=== PATIENT | female | born 1970 | race Caucasian/White ===

== ENCOUNTER → 2016-08-15 | Outpatient (CLI) | payer MEDICARE | LOC: RAD 16:03 | PROVIDERS: ATTEND Physician Assistant | DX: M51.37 Other intervertebral disc degeneration, lumbosacral region (principal); M47.897 Other spondylosis, lumbosacral region | CPT/HCPCS: 72148 ==

== ENCOUNTER 2017-09-28 21:14 | Emergency (ER) | payer MEDICARE ==
[2017-09-28 21:41] VITALS: BP 138/85
--- NOTE | 2017-09-28 23:17 | ER Document Report ---
ED ENT - General Chief Complaint: Sore Throat Stated Complaint: SORE THROAT Time Seen by Provider: 09/28/17 23:02 Mode of Arrival: Ambulatory Information source: Patient Notes: 47-year-old male presents to ED for a sore throat starting yesterday. She has had a cough and cold. She states she is also thought she had thrush yesterday and took her Diflucan for. She denies any fevers. She states she does have a chronic history of sarcoidosis diabetes thyroid depression and PTSD anxiety bipolar. She is alert and oriented speaking in full even sentences. TRAVEL OUTSIDE OF THE [place] IN LAST 30 DAYS: No - HPI Patient complains to provider of: Throat problem Onset: Yesterday Onset/Duration: Persistent Quality of pain: Sharp Severity: Moderate Pain Level: 3 Context: Recent Illness Location of pain: Sinus, Throat Associated symptoms: Ear pain, Runny nose, Sinus pain, Sore throat. denies: Fever Similar symptoms previously: Yes Recently seen / treated by doctor: No - Related Data Allergies/Adverse Reactions: ziprasidone HCl [From Geodon] Allergy (Unknown, Verified 05/25/14 13:27) FELT LIKE I CAN'T BREATH bromocriptine mesylate [From Parlodel] Allergy (Verified 05/25/14 13:27) lamotrigine [From Lamictal] Allergy (Verified 05/25/14 13:27) perphenazine [From Trilafon] Allergy (Verified 05/25/14 13:27) haloperidol [From Haldol] Adverse Reaction (Verified 05/25/14 13:27) Restlessness Past Medical History - General Information source: Patient - Social History Smoking Status: Never Smoker Cigarette use (# per day): No Chew tobacco use (# tins/day): No Smoking Education Provided: No Frequency of alcohol use: None Drug Abuse: None Lives with: Family Family History: Reviewed & Not Pertinent - Past Medical History Cardiac Medical History: Reports: None Pulmonary Medical History: Reports: None, Other - Pulmonary sarcoidosis neurosarcoidosis Neurological Medical History: Reports: None Endocrine Medical History: Reports: Hx Diabetes Mellitus Type 2, Hx Hypothyroidism Renal/ Medical History: Reports: None Malignancy Medical History: Reports: None GI Medical History: Reports: Hx Gastroesophageal Reflux Disease Musculoskeltal Medical History: Reports Hx Musculoskeletal Deformity Skin Medical History: Reports None Psychiatric Medical History: Reports: Hx Anxiety, Hx Attention Deficit Hyperactivity Disorder, Hx Bipolar Disorder - TYPE 2, Hx Depression, Hx Post Traumatic Stress Disorder Traumatic Medical History: Reports: None Infectious Medical History: Reports: None Past Surgical History: Reports: Hx Gynecologic Surgery - tubal ligation NovaSure , Hx Neurologic Surgery, Hx Oral Surgery, Hx Orthopedic Surgery - carpel tunnel , Hx Tubal Ligation - Immunizations Hx Diphtheria, Pertussis, Tetanus Vaccination: No Hx Pneumococcal Vaccination: 04/28/12 Review of Systems - Review of Systems Constitutional: Recent illness. denies: Fever EENT: Ear pain, Nose discharge, Sinus discharge, Throat pain Cardiovascular: No symptoms reported Respiratory: No symptoms reported Gastrointestinal: No symptoms reported Genitourinary: No symptoms reported Female Genitourinary: No symptoms reported Musculoskeletal: No symptoms reported Skin: No symptoms reported Hematologic/Lymphatic: No symptoms reported Neurological/Psychological: No symptoms reported Physical Exam - Vital signs Vitals: Temp Pulse Resp BP Pulse Ox 98.5 F 79 18 138/85 H 97 09/28/17 21:38 09/28/17 21:38 09/28/17 21:38 09/28/17 21:38 09/28/17 21:38 Interpretation: Normal - General General appearance: Appears well, Alert - HEENT Head: Normocephalic, Atraumatic Eyes: Normal Pupils: PERRL Ears: Normal External canal: Normal Tympanic membrane: Normal Sinus: Normal Nasal: Swelling, Clear rhinorrhea Mouth/Lips: Normal Pharynx: Erythema, Post nasal drainage. No: Exudate, Tonsillar hypertrophy Neck: Normal - Respiratory Respiratory status: No respiratory distress Chest status: Nontender Breath sounds: Normal Chest palpation: Normal - Cardiovascular Rhythm: Regular Heart sounds: Normal auscultation Murmur: No - Abdominal Inspection: Normal Distension: No distension Bowel sounds: Normal Tenderness: Nontender Organomegaly: No organomegaly - Back Back: Normal, Nontender - Extremities General upper extremity: Normal inspection, Nontender, Normal color, Normal ROM , Normal temperature General lower extremity: Normal inspection, Nontender, Normal color, Normal ROM , Normal temperature, Normal weight bearing. No: Amirah's sign - Neurological Neuro grossly intact: Yes Cognition: Normal Orientation: AAOx4 [place] Coma Scale Eye Opening: Spontaneous [place] Coma Scale Verbal: Oriented Eliu Coma Scale Motor: Obeys Commands Eliu Coma Scale Total: 15 Speech: Normal Motor strength normal: LUE, RUE, LLE, RLE Sensory: Normal - Psychological Associated symptoms: Normal affect, Normal mood - Skin Skin Temperature: Warm Skin Moisture: Dry Skin Color: Normal Skin irregularity: Rash - Facial rash Course - Re-evaluation Re-evalutation: 09/29/17 00:51 After performing a Medical Screening Examination, I estimate there is LOW risk for ACUTE CORONARY SYNDROME, RESPIRATORY FAILURE, SEPSIS OR MENINGITIS, thus I consider the discharge disposition reasonable. I have reevaluated this patient multiple times and no significant life threatening changes are noted. The patient and I have discussed the diagnosis and risks, and we agree with discharging home with close follow-up. We also discussed returning to the Emergency Department immediately if new or worsening symptoms occur. We have discussed the symptoms which are most concerning (e.g., changing or worsening pain, trouble swallowing or breathing, neck stiffness, fever) that necessitate immediate return. - Vital Signs Vital signs: Temp Pulse Resp BP Pulse Ox 98.5 F 79 18 138/85 H 97 09/28/17 21:38 09/28/17 21:38 09/28/17 21:38 09/28/17 21:38 09/28/17 21:38 Discharge - Discharge Clinical Impression: Viral sore throat, Viral upper respiratory infection, Otalgia of right ear Condition: Stable Disposition: HOME, SELF-CARE Additional Instructions: SORE THROAT: Sore throats may be caused by viruses, bacteria, or fungi. Most are due to a virus, and must get better on their own. Bacterial sore throats, particularly those due to "strep," need treatment with antibiotics. If an antibiotic is prescribed, be sure to take the medication for a full 10 days. Failure to take the antibiotic can result in complications such as rheumatic fever. Sometimes, an injection of antibiotics is given instead of pills or liquid. This single "shot" is equal in effectiveness to the oral medication. To relieve symptoms, take acetaminophen for pain. Sip clear liquids frequently, or eat popsicles or ice chips. Anesthetic sprays or lozenges may help. Make sure the air in the room is not too dry. Avoid using decongestants or antihistamines. Call the doctor if there is no improvement in two days, or if you have difficulty breathing, increasing throat pain, high fever, rash, or frequent vomiting. UPPER RESPIRATORY ILLNESS: You have a viral infection of the respiratory passages -- a "cold." This common infection causes nasal congestion, drainage, and often sore throat and cough. It is highly contagious. The disease usually lasts about 10 to 14 days. There is no "cure" for the viral infection -- it must run its course. If there is a complication, such as bacterial infection in the nose, sinuses, middle ear, or bronchial tubes, antibiotics may be required. The antibiotics won't affect the virus. Drink plenty of fluids. A humidifier may help. An expectorant medication or decongestant may make you more comfortable. Use acetaminophen or ibuprofen for fever or aches. See the doctor if fever persists over two days, if there is any significant worsening of your symptoms, or if you simply fail to improve as expected. Your strep test was negative at this time. It is sent for culture and you will be called if anything shows on the culture. Please follow-up with your primary doctor for your upper respiratory infection. FOLLOW-UP CARE: If you have been referred to a physician for follow-up care, call the physician s office for an appointment as you were instructed or within the next two days. If you experience worsening or a significant change in your symptoms, notify the physician immediately or return to the Emergency Department at any time for re-evaluation. Forms: Elevated Blood Pressure Referrals: KARIS VILLALTA MD [Primary Care Provider] - Follow up tomorrow
== END 2017-09-28 23:58 | disposition home or self-care (01) ==
LOC: ER 21:14
DX: J06.9 Acute upper respiratory infection, unspecified (principal); J02.9 Acute pharyngitis, unspecified; H92.01 Otalgia, right ear; E11.9 Type 2 diabetes mellitus without complications; E03.9 Hypothyroidism, unspecified; Z98.51 Tubal ligation status
CPT/HCPCS: 87070; 87880; 99283

== ENCOUNTER → 2018-03-11 | Outpatient (CLI) | payer MEDICARE ==
--- NOTE | 2018-03-11 12:00 | RADIOLOGY REPORT (SQ) ---
EXAM DESCRIPTION: HAND RIGHT 3 VIEWS COMPLETED DATE/TIME: 03/11/2018 11:00 am REASON FOR STUDY: PAIN IN RIGHT HAND (M79.641), PAIN IN UNSPEC FINGERS (M79.646) M79.641 PAIN IN RI GHT HAND M79.646 PAIN IN UNSPECIFIED FINGER(S) COMPARISON: 07/11/2010 EXAM PARAMETERS: NUMBER OF VIEWS: Three views. TECHNIQUE: AP, lateral and oblique radiographic images acquired of the right hand. LIMITATIONS: None. FINDINGS: MINERALIZATION: Normal. BONES: No acute fracture or dislocation. No worrisome bone lesions. JOINTS: No effusions. SOFT TISSUES: No soft tissue swelling. No foreign body. OTHER: No other significant finding. IMPRESSION: NEGATIVE STUDY OF THE RIGHT HAND. NO RADIOGRAPHIC EVIDENCE OF ACUTE INJURY. TECHNICAL DOCUMENTATION: JOB ID: [id number]- All Rights Reserved Reading location - IP/workstation name: [email or web address]
== END ==
LOC: RAD 10:18
PROVIDERS: ATTEND Physician Assistant Medical
DX: M79.641 Pain in right hand (principal)

== ENCOUNTER → 2018-04-26 | Day surgery (SDC) | payer MEDICARE ==
[~2018-04-26] MED LIST: BUPIVACAINE HCL 0.5 % INJ/PF 30 ML SDV ONE; LIDOCAINE 1% INJ-PF (10 MG/ML) 30 ML SDV ONE; METHYLPREDNISOLONE ACETATE INJ 40 MG/1 ML ML ONE
--- NOTE | 2018-05-03 13:44 | Operative Report ---
PREOPERATIVE DIAGNOSIS: Lumbar Spondylosis POSTOPERATIVE DIAGNOSIS: Lumbar Spondylosis PROCEDURE: Radiofrequency Ablation of medial branches - RT L4 and dorsal primary ramus of L5. LT L4 and Dorsal primary ramus of L5. DATE OF PROCEDURE: 04/26/2019 ANESTHESIA: Local COMPLICATIONS: None CONSENT: A full description of the procedure was provided including benefits as well as possible complications. All questions were answered and informed consent was given and signed. ASA guidelines for fasting were verified prior to sedation. PROCEDURE IN DETAIL The patient was brought into the fluoroscopy suite and positioned into the prone position on the fluoroscopy table and allowed to adjust to a position of comfort. A grounding pad was placed on the left thigh. The lumbar region was widely prepped with a chloraprep solution, allowed to air dry and draped in standard sterile surgical fashion. Local anesthesia was provided by 1 mL of 1 % lidocaine delivered with a 25 g needle. A 17g 100mm radiofrequency introducer needle was placed to the planned anatomic targets guided with intermittent fluoroscopy with a perpendicular approach to terminally place at the junction of the superior articular process and the transverse process of the right L5 and the base of the sacral ala on the right for the L5 medial branch nerve. The stylets were removed and radiofrequency probes with a 4mm active tip were then inserted. Needle tip position of the probes was verified in the AP, oblique, and lateral views. At each site, the medial branch nerve was stimulated at 2 Hz to a maximum 1-2 volts determined to finalize safe needle and electrode placement. The patient was awake and responsive during this portion of the procedure. Each target was anesthetized with 1-2 mL of 0.25 % bupivacaine for anesthesia for lesioning and then each target was lesioned at 80 degrees Celsius for 2 minutes and 30 seconds. Tissue impedences were noted to be between 250 and 500 Ohms. Electrodes were then removed and the needles were infiltrated with 1mL of a mixture containing 40mg depomedrol in 0.25% bupivacaine. Then, needles were then removed. Attention was then turned to the opposite side where the procedure was performed in identical fashion. [place] were removed, and bandages placed over the needle placement sites, the patient then returned to the supine position on a stretcher and transported to the recovery room without hemodynamic, neurologic, or allergic reactions. Fluoroscopic images were printed for hard copy recording and digitally archived. POST PROCEDURE EVALUATION: The patient was comfortable in the recovery room. The patient is aware that pain may worsen before remitting and 4 - 6 weeks may be required prior to the onset of pain relief. IMPRESSION: 1. Technically successful Bilateral L4 L5 medial branch radiofrequency neurotomy without complication. 2. RTC in 2 weeks. 3. Estimated Blood Loss: None
== END ==
LOC: RAD 10:25
PROVIDERS: ATTEND Pain Medicine Interventional Pain Medicine
DX: M47.817 Spondylosis without myelopathy or radiculopathy, lumbosacral region (principal)
CPT/HCPCS: 64635 ×2; J3490 ×2; J1020

== ENCOUNTER → 2018-04-26 | Outpatient (CLI) | payer MEDICARE | LOC: LAB 11:31 | PROVIDERS: ATTEND Obstetrics & Gynecology | DX: Z11.1 Encounter for screening for respiratory tuberculosis (principal) | CPT/HCPCS: 36415 ==

== ENCOUNTER 2018-05-14 18:16 | Emergency (ER) | payer MEDICARE ==
[2018-05-14 19:25] LABS: ABSOLUTE EOSINOPHILS # (AUTO) 0.1 10^3/uL (0.0-0.6); ABSOLUTE LYMPHOCYTES (AUTO) 2.1 10^3/uL (0.5-4.7); ABSOLUTE MONOCYTES (AUTO) 0.5 10^3/uL (0.1-1.4); ABSOLUTE NEUT (AUTO) 8.2 10^3/uL (1.7-8.2); BASOPHILS % (AUTO) 0.3 % (0-2); EOSINOPHILS % (AUTO) 0.6 % (0-6); HEMATOCRIT 48.9 % (36.0-47.0); HEMOGLOBIN 16.6 g/dL (12.0-15.5); LYMPHOCYTES % (AUTO) 19.1 % (13-45); MEAN CORPUSCULAR HEMOGLOBIN 28.3 pg (27.0-33.4); MEAN CORPUSCULAR VOLUME 83 fl (80-97); MONOCYTES % (AUTO) 4.3 % (3-13); PLATELET COUNT 219 10^3/uL (150-450); RED BLOOD COUNT 5.87 10^6/uL (3.72-5.28); RED CELL DISTRIBUTION WIDTH 13.1 % (11.5-14.0); SEGMENTED NEUTROPHILS % (AUTO) 75.7 % (42-78); TOTAL CELLS COUNTED % (AUTO) 100 %; WHITE BLOOD COUNT 10.8 10^3/uL (4.0-10.5)
[2018-05-14 19:51] LABS: ALANINE AMINOTRANSFERASE 103 U/L (9-52); ALBUMIN 5.4 g/dL (3.5-5.0); ALKALINE PHOSPHATASE 101 U/L (38-126); ANION GAP 12 (5-19); ASPARTATE AMINO TRANSFERASE 60 U/L (14-36); BILIRUBIN,DIRECT 0.4 mg/dL (0.0-0.4); BILIRUBIN,TOTAL 0.7 mg/dL (0.2-1.3); BLOOD UREA NITROGEN 15 mg/dL (7-20); CALCIUM 10.7 mg/dL (8.4-10.2); CARBON DIOXIDE 25 mmol/L (22-30); CHLORIDE 102 mmol/L (98-107); GLUCOSE 288 mg/dL (75-110); POTASSIUM 4.4 mmol/L (3.6-5.0); SODIUM 139.3 mmol/L (137-145); TOTAL PROTEIN 8.7 g/dL (6.3-8.2)
[2018-05-14 19:53] LABS: ACETAMINOPHEN < 10 ug/mL (10-30); ALCOHOL < 10 mg/dL (NONE DETECTED); SALICYLATE < 1.0 mg/dL (2.0-20.0)
[2018-05-14 20:33] LABS: APPEARANCE,URINE CLEAR; BILIRUBIN,URINE NEGATIVE (NEGATIVE); COLOR,URINE YELLOW; GLUCOSE, URINE >=500 mg/dL (NEGATIVE); KETONES,URINE 20 mg/dL (NEGATIVE); LEUKOCYTE ESTERASE,URINE NEGATIVE (NEGATIVE); NITRITE,URINE NEGATIVE (NEGATIVE); PROTEIN,URINE NEGATIVE (NEGATIVE); URINE SPECIFIC GRAVITY 1.037; UROBILINOGEN,URINE NEGATIVE mg/dL (<2.0)
--- NOTE | 2018-05-14 20:33 | EKG REPORT ---
SEVERITY:- BORDERLINE ECG - SINUS TACHYCARDIA : Confirmed by: Hardeep Dunbar 14-May-2018 20:33:12
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
[2018-05-14 20:42] LABS: URINE AMPHETAMINES SCREEN UNCONFIRMED POSITIVE; URINE BARBITURATES SCREEN NEGATIVE; URINE BENZODIAZEPINES SCREEN NEGATIVE; URINE COCAINE SCREEN NEGATIVE; URINE MARIJUANA (THC) SCREEN NEGATIVE; URINE METHADONE SCREEN NEGATIVE; URINE PHENCYCLIDINE SCREEN NEGATIVE
[2018-05-14] MEDS ORDERED: DIAZEPAM 5 MG TABLET PO ONE (20:55)
[2018-05-14] MEDS ORDERED: DIPH/PERTUSS(ACELL)/TETANUS VAC/PF 0.5 ML SYR (>=10YO) IM ONE (20:56)
[2018-05-15] MEDS ORDERED: OLANZAPINE 5 MG TABLET PO ONE (02:13)
[2018-05-15] MEDS ORDERED: ACETAMINOPHEN 325 MG TABLET PO ONE ×2 (03:25→10:38)
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
[2018-05-15] MEDS ORDERED: LEVOTHYROXINE SODIUM 0.1 MG TABLET PO SCH (10:00)
[2018-05-15] MEDS ORDERED: MYCOPHENOLATE MOFETIL 250 MG CAPSULE PO SCH ×2 (10:00)
[2018-05-15] MEDS ORDERED: METFORMIN HCL 500 MG TABLET PO SCH (10:00)
[2018-05-15] MEDS ORDERED: ONDANSETRON 4 MG TAB.RAPDIS PO ONE (12:36)
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
[2018-05-15] MEDS ORDERED: IBUPROFEN 600 MG TABLET PO ONE (14:42)
[2018-05-15] MEDS ORDERED: DIAZEPAM 5 MG TABLET PO ONE ×2 (14:47→19:09)
[2018-05-15] MEDS ORDERED: (PENDING PHARMACY ID) (Metformin Hcl [Metformin Hcl Er] 500 MG) PO SCH (18:00)
[2018-05-15] MEDS ORDERED: ROPINIROLE HCL 1 MG TABLET ONE (21:18)
[2018-05-15] MEDS ORDERED: (PENDING PHARMACY ID) (Doxepin Hcl [Doxepin Hcl] 150 MG) PO SCH (22:00)
[2018-05-15] MEDS ORDERED: ROPINIROLE HCL 1 MG TABLET PO SCH (22:00)
[2018-05-16] MEDS ORDERED: ACETAMINOPHEN 325 MG TABLET PO ONE (01:34)
[2018-05-16] MEDS ORDERED: LEVOTHYROXINE SODIUM 0.1 MG TABLET PO SCH (06:00)
[2018-05-16 07:16] VITALS: BP 108/68
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
--- NOTE | 2018-05-16 09:44 | ER Document Report ---
Doctor's Note Notes: Patient seen and evaluated by myself. She was brought to emergency to department for suicidal ideations and agressive behavior. No issues overnight per nursing. Patient's vital signs are stable. She is medically cleared. Patient has no complaints in the room. Behavioral health is consulted. They are working on placement. 05/16/18 15:37 Behavioral health would like the patient to be discharged home. They are unable to find placement for the patient. They would like the patient to follow-up at [facility]. Patient is currently denying any suicidal or homicidal ideations, delusions, hallucinations.
[2018-05-16] MEDS ORDERED: METFORMIN HCL 500 MG TABLET PO SCH (18:00)
[2018-05-16] MEDS ORDERED: GLIMEPIRIDE 4 MG TABLET PO SCH (18:00)
[2018-05-16] MEDS ORDERED: GABAPENTIN 400 MG CAPSULE PO SCH (22:00)
[2018-05-16] MEDS ORDERED: ROPINIROLE HCL 1 MG TABLET PO SCH (22:00)
[2018-05-16] MEDS ORDERED: (PENDING PHARMACY ID) (Doxepin Hcl [Doxepin Hcl] 150 MG) PO SCH (22:00)
== END 2018-05-16 16:50 | disposition home or self-care (01) ==
LOC: ER 18:16
DX: S61.512A Laceration without foreign body of left wrist, initial encounter (principal); R45.851 Suicidal ideations; F41.9 Anxiety disorder, unspecified; F32.9 Major depressive disorder, single episode, unspecified; F19.10 Other psychoactive substance abuse, uncomplicated; X78.8XXA Intentional self-harm by other sharp object, initial encounter; Z79.899 Other long term (current) drug therapy; I10 Essential (primary) hypertension; E11.9 Type 2 diabetes mellitus without complications
CPT/HCPCS: 93005; 36415; 82962; 80307 ×4; 84703; 85025; 80053; 81001; 93010; A6266; A9270 ×10; 99285; J7517; S0119

== ENCOUNTER → 2019-01-30 | Day surgery (SDC) | payer MEDICARE, MEDICAID ==
[~2019-01-30] MED LIST changes: -LIDOCAINE 1% INJ-PF (10 MG/ML) 30 ML SDV ONE; +LIDOCAINE 2% INJ (20 MG/ML) 20 ML MDV ONE
--- NOTE | 2019-01-30 16:37 | Operative Report ---
PREOPERATIVE DIAGNOSIS: Lumbar Spondylosis POSTOPERATIVE DIAGNOSIS: Lumbar Spondylosis PROCEDURE: Radiofrequency Ablation of medial branches - RT L4 dorsal primary ramus of L5. LT L4 Dorsal primary ramus of L5. DATE OF PROCEDURE: Jan 30 2019 ANESTHESIA: Local COMPLICATIONS: none CONSENT: A full description of the procedure was provided including benefits as well as possible complications. All questions were answered and informed consent was given and signed. ASA guidelines for fasting were verified prior to sedation. PROCEDURE IN DETAIL The patient was brought into the fluoroscopy suite and positioned into the prone position on the fluoroscopy table and allowed to adjust to a position of comfort. A grounding pad was placed on the LEFT thigh. The lumbar region was widely prepped with a chloraprep solution, allowed to air dry and draped in standard sterile surgical fashion. Local anesthesia was provided by 1 mL of 1% lidocaine delivered with a 25 g needle. A 17g 100 mm radiofrequency introducer needle was placed to the planned anatomic targets guided with intermittent fluoroscopy with a perpendicular approach to terminally place at the junction of the superior articular process and the transverse process of the LEFT L5 and the base of the sacral ala on the LEFT for the L5 medial branch nerve. The stylets were removed and radiofrequency probes with a 4mm active tip were then inserted. Needle tip position of the probes was verified in the AP, oblique, and lateral views. At each site, the medial branch nerve was stimulated at 2 Hz to a maximum 1-2 volts determined to finalize safe needle and electrode placement. The patient was awake and responsive during this portion of the procedure. Each target was anesthetized with 1-2 mL of 2% lidocaine for anesthesia for lesioning and then each target was lesioned at 80 degrees Celsius for 2 minutes and 30 seconds. Tissue impedences were noted to be between 250 and 500 Ohms. Electrodes were then removed and each site was infiltrated with 1mL of a mixture of 0.25% bupivacaine and 40mg depomedrol. Attention was then turned to the opposite side where the procedure was performed in identical fashion. Then needles were removed and bandages placed over the needle placement sites, the patient then returned to the supine position on a stretcher and transported to the recovery room without hemodynamic, neurologic, or allergic reactions. Fluoroscopic images were printed for hard copy recording and digitally archived. POST PROCEDURE EVALUATION: The patient was comfortable in the recovery room. The patient is aware that pain may worsen before remitting and 4 - 6 weeks may be required prior to the onset of pain relief. IMPRESSION: 1. Technically successful BILATERAL L4 L5 medial branch radiofrequency neurotomy for denervation without complication. 2. RTC in 2 weeks. 3. Estimated Blood Loss: minimal
== END ==
LOC: RAD 14:53
PROVIDERS: ATTEND Pain Medicine Interventional Pain Medicine
DX: M47.817 Spondylosis without myelopathy or radiculopathy, lumbosacral region (principal)
CPT/HCPCS: 64635; 64636; J3490 ×2; J1030

== ENCOUNTER 2019-02-12 23:47 | Inpatient (IN) | payer MEDICARE, MEDICAID ==
[~2019-02-12 23:47] MED LIST changes: -BUPIVACAINE HCL 0.5 % INJ/PF 30 ML SDV ONE; +ETOMIDATE INJ/PF 20 MG/10 ML SDV IV ONE; -LIDOCAINE 2% INJ (20 MG/ML) 20 ML MDV ONE; -METHYLPREDNISOLONE ACETATE INJ 40 MG/1 ML ML ONE
--- NOTE | 2019-02-12 23:53 | ER Document Report ---
ED General - General Stated Complaint: UNRESPONSIVE Time Seen by Provider: 02/12/19 23:52 Notes: Patient is a 48-year-old female with history of multiple medical problems that presents to the emergency department for chief complaint of suspected overdose. History obtained by EMS and the patient's son who arrived at bedside. EMS states they were called for suspected overdose of possible opiates versus benzodiazepines, the patient received 4 mg of intranasal Narcan, prior to their arrival, without much response according to the son, they administered an additional 2 mg, without much response, the patient desatted, and they placed a nasal airway, and provided submental oxygen which did improve the pulse ox. Patient was moving limbs at that time, and seemed to move more after the Narcan, but was still not responding to verbal stimuli, and only withdrawing with noxious stimuli. The son suspects that the patient had overdosed on Xanax, which she does have prescribed to her, and she has a history of abusing, she is also prescribed oxycodone which she is abused in the past as well. Past Medical History: Depression, anxiety, chronic pain Past Surgical History: Cervical spine surgery Social History: Lives at home with family, history of prescription medication abuse Family History: Reviewed and noncontributory for presenting illness Allergies: Reviewed, see documented allergy list. REVIEW OF SYSTEMS: Review of systems unobtainable at this time secondary to the patient's altered state. PHYSICAL EXAMINATION: Vital signs reviewed, nursing noted reviewed. GENERAL: Patient is altered, GCS 5 HEAD: Atraumatic, normocephalic. EYES: Eyes appear normal, PERRLA, pupils 3 mm to 2, no nystagmus or conjunctival injection. ENT: nares patent, oropharynx clear without exudates. Moist mucous membranes. NECK: Supple bulk, no JVD LUNGS: Breath sounds clear to auscultation bilaterally and equal. No wheezes rales or rhonchi. HEART: Regular rate and rhythm without murmurs ABDOMEN: Soft, obese, normoactive bowel sounds. No rebound, guarding, or r igidity. No masses appreciated. EXTREMITIES: No edema, moves all extremities, withdraws with noxious stimuli. NEUROLOGICAL: GCS 5:, Withdrawals with noxious stimuli, no verbal response, and no eye-opening with noxious stimuli. PSYCH: GCS 5, unresponsive SKIN: Warm, Dry, normal turgor, no rashes or lesions noted on exposed skin TRAVEL OUTSIDE OF THE [place] IN LAST 30 DAYS: No - Related Data Allergies/Adverse Reactions: ziprasidone HCl [From Geodon] Allergy (Unknown, Verified 05/25/14 13:27) FELT LIKE I CAN'T BREATH bromocriptine mesylate [From Parlodel] Allergy (Verified 05/25/14 13:27) lamotrigine [From Lamictal] Allergy (Verified 05/25/14 13:27) perphenazine [From Trilafon] Allergy (Verified 05/25/14 13:27) haloperidol [From Haldol] Adverse Reaction (Verified 05/25/14 13:27) Restlessness Past Medical History - Social History Smoking Status: Current Every Day Smoker Family History: Reviewed & Not Pertinent - Past Medical History Cardiac Medical History: Reports: Hx Hypertension - OCULAR Endocrine Medical History: Reports: Hx Diabetes Mellitus Type 1, Hx Diabetes Mellitus Type 2, Hx Hypothyroidism Renal/ Medical History: Denies: Hx Peritoneal Dialysis GI Medical History: Reports: Hx Gastroesophageal Reflux Disease Musculoskeletal Medical History: Reports Hx Musculoskeletal Deformity Psychiatric Medical History: Reports: Hx Anxiety, Hx Attention Deficit Hyperactivity Disorder, Hx Bipolar Disorder - TYPE 2, Hx Depression, Hx Post Traumatic Stress Disorder Past Surgical History: Reports: Hx Gynecologic Surgery - tubal ligation NovaSure, Hx Hysterectomy, Hx Neurologic Surgery, Hx Oral Surgery, Hx Orthopedic Surgery - carpel tunnel, Hx Tubal Ligation - Immunizations Hx Diphtheria, Pertussis, Tetanus Vaccination: No Hx Pneumococcal Vaccination: 04/28/12 Physical Exam - Vital signs Vitals: Resp Pulse Ox 20 100 02/12/19 23:50 02/12/19 23:50 Course - Re-evaluation Re-evalutation: Patient seen and examined vital signs reviewed. Laboratory data and imaging were ordered as appropriate for the patient's presenting symptoms and complaint, with consideration of any critical or life threatening conditions that may be associated with their obtained history and exam as noted above. Patient was treated with IV fluids, and initially was given additional 2 mg of IV Narcan, however the patient did not increase in her responsiveness, and therefore intubated for airway protection, as noted, remained stable on the ventilator, airway did need to be suction, prior to placement of ET tube. Results were reviewed when available and demonstrated essentially unremarkable blood work, urine tox was positive for opiates and benzodiazepines The patient was re-evaluated and was stable on the ventilator, sedated with propofol, vital signs remaining stable. Evaluation was most consistent with overdose, likely benzodiazepines, or combination of benzos and opiates, discussed the case both with the television host and the admitting hospitalist who agreed with admission to the hospital to the ICU. Patient's son was updated on plan of care as well. *Note is created using voice recognition software and may contain spelling, syntax or grammatical errors. Laboratory 02/13/19 02/13/19 02/13/19 00:05 00:05 00:05 WBC 7.6 RBC 5.43 H Hgb 14.6 Hct 44.8 MCV 82 MCH 26.9 L MCHC 32.7 RDW 14.0 Plt Count 183 Lymph % (Auto) 36.2 Crosby % (Auto) 5.8 Eos % (Auto) 2.0 Baso % (Auto) 0.7 Absolute Neuts (auto) 4.2 Absolute Lymphs (auto) 2.8 Absolute Monos (auto) 0.4 Absolute Eos (auto) 0.2 Absolute Basos (auto) 0.1 Seg Neutrophils % 55.3 Carbonic Acid HCO3/H2CO3 Ratio ABG pH ABG pCO2 ABG pO2 ABG HCO3 ABG Total CO2 ABG O2 Saturation ABG Base Excess FiO2 Sodium 136.5 L Potassium 4.3 Chloride 99 Carbon Dioxide 27 Anion Gap 11 BUN 15 Creatinine 0.53 Est GFR ( Amer) > 60 Est GFR (MDRD) Non-Af > 60 Glucose 280 H Calcium 10.1 Total Bilirubin 0.6 Direct Bilirubin 0.2 Neonat Total Bilirubin Not Reportable Neonat Direct Bilirubin Not Reportable Neonat Indirect Bili Not Reportable AST 68 H ALT 122 Alkaline Phosphatase 74 Total Protein 7.6 Albumin 4.6 Serum HCG, Qual NEGATIVE Urine Color Urine Appearance Urine pH Ur Specific Stanley Urine Protein Urine Glucose (UA) Urine Ketones Urine Blood Urine Nitrite Urine Bilirubin Urine Urobilinogen Ur Leukocyte Esterase Urine WBC (Auto) Urine RBC (Auto) Amorphous Sediment Auto Urine Ascorbic Acid Salicylates < 1.0 L Urine Opiates Screen Urine Methadone Screen Acetaminophen < 10 L Ur Barbiturates Screen Ur Phencyclidine Scrn Ur Amphetamines Screen U Benzodiazepines Scrn Urine Cocaine Screen U Marijuana (THC) Screen Serum Alcohol < 10 02/13/19 02/13/19 02/13/19 00:20 00:20 00:50 WBC RBC Hgb Hct MCV MCH MCHC RDW Plt Count Lymph % (Auto) Crosby % (Auto) Eos % (Auto) Baso % (Auto) Absolute Neuts (auto) Absolute Lymphs (auto) Absolute Monos (auto) Absolute Eos (auto) Absolute Basos (auto) Seg Neutrophils % Carbonic Acid 1.38 H HCO3/H2CO3 Ratio 19:1 ABG pH 7.38 ABG pCO2 45.9 H ABG pO2 73.6 L ABG HCO3 26.6 H ABG Total CO2 28.0 H ABG O2 Saturation 94.5 ABG Base Excess 1.0 FiO2 40% Sodium Potassium Chloride Carbon Dioxide Anion Gap BUN Creatinine Est GFR ( Amer) Est GFR (MDRD) Non-Af Glucose Calcium Total Bilirubin Direct Bilirubin Neonat Total Bilirubin Neonat Direct Bilirubin Neonat Indirect Bili AST ALT Alkaline Phosphatase Total Protein Albumin Serum HCG, Qual Urine Color DARK YELLOW Urine Appearance TURBID Urine pH 5.0 Ur Specific Stanley 1.026 Urine Protein NEGATIVE Urine Glucose (UA) 150 H Urine Ketones NEGATIVE Urine Blood NEGATIVE Urine Nitrite NEGATIVE Urine Bilirubin NEGATIVE Urine Urobilinogen NEGATIVE Ur Leukocyte Esterase NEGATIVE Urine WBC (Auto) 49 Urine RBC (Auto) 6 Amorphous Sediment Auto 1+ Urine Ascorbic Acid NEGATIVE Salicylates Urine Opiates Screen UNCONFIRMED POSITIVE Urine Methadone Screen NEGATIVE Acetaminophen Ur Barbiturates Screen NEGATIVE Ur Phencyclidine Scrn NEGATIVE Ur Amphetamines Screen NEGATIVE U Benzodiazepines Scrn UNCONFIRMED POSITIVE Urine Cocaine Screen NEGATIVE U Marijuana (THC) Screen NEGATIVE Serum Alcohol Chest X-Ray 02/13/19 00:01 IMPRESSION: Satisfactory position of the endotracheal and nasogastric tubes. Retrocardiac airspace opacity. copyright 2011 [employer]- All Rights Reserved Head CT 02/13/19 00:01 IMPRESSION: No acute intracranial abnormality TECHNICAL DOCUMENTATION: Quality ID # 436: Final reports with documentation of one or more dose reduction techniques (e.g., Automated exposure control, adjustment of the mA and/or kV according to patient size, use of iterative reconstruction technique) copyright 2011 [employer]- All Rights Reserved - Vital Signs Vital signs: Temp Pulse Resp BP Pulse Ox 94.2 F L 12 104/70 98 02/13/19 01:46 02/13/19 01:46 02/13/19 01:46 02/13/19 01:46 - Laboratory Result Diagrams: 02/13/19 00:05 02/13/19 00:05 Laboratory results interpreted by me: 02/13/19 02/13/19 02/13/19 00:05 00:05 00:20 RBC 5.43 H MCH 26.9 L Carbonic Acid ABG pCO2 ABG pO2 ABG HCO3 ABG Total CO2 Sodium 136.5 L Glucose 280 H AST 68 H Urine Glucose (UA) 150 H Salicylates < 1.0 L Acetaminophen < 10 L 02/13/19 00:50 RBC MCH Carbonic Acid 1.38 H ABG pCO2 45.9 H ABG pO2 73.6 L ABG HCO3 26.6 H ABG Total CO2 28.0 H Sodium Glucose AST Urine Glucose (UA) Salicylates Acetaminophen - EKG Interpretation by Me Additional EKG results interpreted by me: EKG demonstrates sinus rhythm with a ventricular rate of 81 bpm, normal axis, QTC 465 ms, no evidence of acute ischemia in this EKG. Procedures - Intubation Orotracheal Airway evaluation: Neck immobility, Obese Mallampati Classification: Class 2 Medications: Etomidate - 20mg, Other - Rocuronium 50mg Intubation method: Orotracheal Blade type: Vlad Blade size: 4 Equipment used: Glidescope ETT size: 7.5 ETT secured at: Lips ETT secured at (cm): 23 Breath Sounds after Intubation: Equal End tidal CO2 confirmed: Yes Post Intubation Xray: Yes Intubation Complications: No complications Notes: Patient was noted to have food particles near her larynx above the cords. This was suctioned prior to intubation. Critical Care Note - Critical Care Note Total time excluding time spent on procedures (mins): 38 Comments: Critical care time 38 minutes exclusive from separate billable procedures for a patient requiring complex medical decision making, and high potential for clinical deterioration. In a patient with acute respiratory failure, secondary to suspected overdose, requiring intubation and close monitoring. Time spent obtaining history from patient or surrogate, discussions with consultants, development of treatment plan with patient or surrogate, evaluation of patient's response to treatment, examination of patient, ordering and performing treatments and interventions, ordering and review of laboratory studies, re- evaluation of patient's condition, ordering and review of radiographic studies and review of old charts Discharge - Discharge Clinical Impression: Acute respiratory failure Qualifiers: Respiratory failure complication: hypoxia Qualified Code(s): J96.01 - Acute respiratory failure with hypoxia Overdose Qualifiers: Encounter type: initial encounter Injury intent: undetermined intent Qualified Code(s): T50.904A - Poisoning by unspecified drugs, medicaments and biological substances, undetermined, initial encounter Condition: Serious Disposition: ADMITTED INPATIENT Admitting Provider: Enzo (Hospitalist) Unit Admitted: ICU
[2019-02-13] MEDS ORDERED: NALOXONE HCL INJ 2 MG/2 ML DISP.SYRIN IV ONE
[2019-02-13] MEDS ORDERED: NALOXONE HCL INJ 2 MG/2 ML DISP.SYRIN ONE
[2019-02-13] MEDS ORDERED: NORMAL SALINE 1000 ML 1,000 ML IV ONE ×2 (00:01→01:53)
[2019-02-13] MEDS ORDERED: PROPOFOL 1,000 MG/100 ML INFUS..BTL IV ONE (00:13)
[2019-02-13] MEDS ORDERED: PROPOFOL 1,000 MG/100 ML INFUS..BTL IV PRN (00:13)
[2019-02-13 00:15] LABS: ABSOLUTE BASOPHILS # (AUTO) 0.1 10^3/uL (0.0-0.2); ABSOLUTE EOSINOPHILS # (AUTO) 0.2 10^3/uL (0.0-0.6); ABSOLUTE LYMPHOCYTES (AUTO) 2.8 10^3/uL (0.5-4.7); ABSOLUTE MONOCYTES (AUTO) 0.4 10^3/uL (0.1-1.4); ABSOLUTE NEUT (AUTO) 4.2 10^3/uL (1.7-8.2); BASOPHILS % (AUTO) 0.7 % (0-2); HEMATOCRIT 44.8 % (36.0-47.0); HEMOGLOBIN 14.6 g/dL (12.0-15.5); LYMPHOCYTES % (AUTO) 36.2 % (13-45); MEAN CORPUSCULAR HEMOGLOBIN 26.9 pg (27.0-33.4); MEAN CORPUSCULAR HGB CONC 32.7 g/dL (32.0-36.0); MEAN CORPUSCULAR VOLUME 82 fl (80-97); MONOCYTES % (AUTO) 5.8 % (3-13); PLATELET COUNT 183 10^3/uL (150-450); RED BLOOD COUNT 5.43 10^6/uL (3.72-5.28); SEGMENTED NEUTROPHILS % (AUTO) 55.3 % (42-78); TOTAL CELLS COUNTED % (AUTO) 100 %; WHITE BLOOD COUNT 7.6 10^3/uL (4.0-10.5)
[2019-02-13] MEDS: PROPOFOL 1,000 MG/100 ML INFUS..BTL IV PRN ×2 (00:20→05:31)
[2019-02-13 00:36] LABS: ALBUMIN 4.6 g/dL (3.5-5.0); ALKALINE PHOSPHATASE 74 U/L (38-126); ANION GAP 11 (5-19); ASPARTATE AMINO TRANSFERASE 68 U/L (14-36); BILIRUBIN,DIRECT 0.2 mg/dL (0.0-0.4); BILIRUBIN,TOTAL 0.6 mg/dL (0.2-1.3); BLOOD UREA NITROGEN 15 mg/dL (7-20); CALCIUM 10.1 mg/dL (8.4-10.2); CARBON DIOXIDE 27 mmol/L (22-30); CHLORIDE 99 mmol/L (98-107); GLUCOSE 280 mg/dL (75-110); POTASSIUM 4.3 mmol/L (3.6-5.0); TOTAL PROTEIN 7.6 g/dL (6.3-8.2)
[2019-02-13 00:38] LABS: ACETAMINOPHEN < 10 ug/mL (10-30); ALCOHOL < 10 mg/dL (NONE DETECTED); SALICYLATE < 1.0 mg/dL (2.0-20.0)
--- NOTE | 2019-02-13 01:02 | RADIOLOGY REPORT (SQ) ---
EXAM DESCRIPTION: XR CHEST 1 VIEW COMPLETED DATE/TME: 02/13/2019 00:01 CLINICAL HISTORY: 48 years, Female, altered mental status COMPARISON: 12/23/2015 NUMBER OF VIEWS: One TECHNIQUE: AP view the chest LIMITATIONS: None. FINDINGS: As a retrocardiac airspace opacity. The heart is normal in size. There is no pneumothorax or pleural effusion. The endotracheal tube terminates approximately 3 cm above the monie. The nasogastric tube is in satisfactory position. Postsurgical changes to the cervical spine are partially visualized. IMPRESSION: Satisfactory position of the endotracheal and nasogastric tubes. Retrocardiac airspace opacity. copyright 2010 [employer]- All Rights Reserved
--- NOTE | 2019-02-13 01:03 | RADIOLOGY REPORT (SQ) ---
EXAM DESCRIPTION: CT HEAD WITHOUT IV CONTRAST COMPLETED DATE/TME: 02/13/2019 00:01 CLINICAL HISTORY: 48 years, Female, altered mental status COMPARISON: 12/23/2015 TECHNIQUE: Axial CT images of the brain were obtained without contrast. Sagittal and coronal reformats were performed. DLP 990 Images stored on PACS. All CT scanners at this facility use dose modulation, iterative reconstruction, and/or weight based dosing when appropriate to reduce radiation dose to as low as reasonably achievable (ALARA). [facility]: Dose Right [facility]: CareDose [facility]: Dose Right [facility]: Teradose 4D [facility]: GroupCharger LIMITATIONS: None. FINDINGS: There is no acute cortical infarct, hemorrhage, mass, edema, hydrocephalus, or extra-axial fluid collection. The barboza-white matter attenuation is preserved. The paranasal sinuses and mastoid air cells are clear. No depressed calvarial fracture. IMPRESSION: No acute intracranial abnormality TECHNICAL DOCUMENTATION: Quality ID # [id number]: Final reports with documentation of one or more dose reduction techniques (e.g., Automated exposure control, adjustment of the mA and/or kV according to patient size, use of iterative reconstruction technique) copyright 2011 [employer]- All Rights Reserved
[2019-02-13 01:11] LABS: ARTERIAL BLOOD FIO2 40%; ARTERIAL BLOOD H2CO3 1.38 mmol/L (1.05-1.35); ARTERIAL BLOOD HCO3 26.6 mmol/L (20-24); ARTERIAL BLOOD O2 SATURATION 94.5 % (94-98); ARTERIAL BLOOD PCO2 45.9 mmHg (35-45); ARTERIAL BLOOD PH 7.38 (7.35-7.45); ARTERIAL BLOOD PO2 73.6 mmHg (80-100)
[2019-02-13 01:18] LABS: AMORPHOUS SEDIMENT,URINE 1+ /HPF; APPEARANCE,URINE TURBID; BILIRUBIN,URINE NEGATIVE (NEGATIVE); GLUCOSE, URINE 150 mg/dL (NEGATIVE); KETONES,URINE NEGATIVE (NEGATIVE); LEUKOCYTE ESTERASE,URINE NEGATIVE (NEGATIVE); NITRITE,URINE NEGATIVE (NEGATIVE); PROTEIN,URINE NEGATIVE (NEGATIVE); URINE SPECIFIC GRAVITY 1.026; UROBILINOGEN,URINE NEGATIVE mg/dL (<2.0)
[2019-02-13 01:27] LABS: COLOR,URINE DARK YELLOW
[2019-02-13 01:40] LABS: URINE AMPHETAMINES SCREEN NEGATIVE; URINE BARBITURATES SCREEN NEGATIVE; URINE BENZODIAZEPINES SCREEN UNCONFIRMED POSITIVE; URINE COCAINE SCREEN NEGATIVE; URINE MARIJUANA (THC) SCREEN NEGATIVE; URINE METHADONE SCREEN NEGATIVE; URINE PHENCYCLIDINE SCREEN NEGATIVE
[2019-02-13] MEDS ORDERED: ROCURONIUM BROMIDE INJ 50 MG/5 ML VIAL IV ONE ×3 (01:41→09:11)
[2019-02-13] MEDS ORDERED: ETOMIDATE INJ/PF 20 MG/10 ML SDV IV ONE ×2 (01:42→02:02)
[2019-02-13] MEDS ORDERED: GLUCAGON,HUMAN RECOMB 1 MG INJ IM PRN (01:53)
[2019-02-13] MEDS ORDERED: IPRATROPIUM/ALBUTEROL 0.5-2.5 MG/3 ML AMPUL NEB PRN (01:53)
[2019-02-13] MEDS ORDERED: DEXTROSE 40% GEL 15 GM TUBE PO PRN ×4 (01:53)
[2019-02-13] MEDS ORDERED: GLUCAGON,HUMAN RECOMB 1 MG INJ SUBCUT PRN (01:53)
[2019-02-13] MEDS ORDERED: DEXTROSE 50%-WATER 25 GM/50 ML DISP.SYRIN IV PRN ×4 (01:53)
[2019-02-13] MEDS ORDERED: HYDRALAZINE HCL INJ/PF 20 MG/1 ML SDV IV PRN (01:59)
[2019-02-13] MEDS ORDERED: FENTANYL CITRATE INJ/PF 100 MCG/2 ML AMPUL IV PRN (01:59)
--- NOTE | 2019-02-13 02:19 | PDOC H&P ---
History of Present Illness Admission Date/PCP: 02/13/19 01:26 HUYEN ROSA MD Patient complains of: Altered mental status History of Present Illness: SIMBA GARCIA is a 48 year old female who presents obtunded without airway protection intubated and sedated obtunded and subsequent history is obtained by the record. She is well-known to the hospitalist service for a past medical history of self-reported sarcoidosis, spinal stenosis, diabetes, gastroparesis, ADD, PTSD, anxiety, hypothyroidism, opiate dependent chronic pain, borderline personality disorder, overdose and polypharmacy. She presents after discovered by her son unarousable for an unclear duration. He administers Narcan without significant improvement and calls EMS. She receives supportive care which is unavailable for review. In the emergency room she is found to be with a GCS of 15, hypothermic and apneic without airway protection. Emesis is suctioned from the upper airway and she is intubated, placed on propofol and referred to the hospitalist for admission. Members of family are unavailable for interview. Past Medical History Cardiac Medical History: Reports: Hypertension - OCULAR Endocrine Medical History: Reports: Diabetes Mellitus Type 1, Diabetes Mellitus Type 2, Hypothyroidism GI Medical History: Reports: Gastroesophageal Reflux Disease Psychiatric Medical History: Reports: Attention Deficit Hyperactivity Disorder, Bipolar Disorder - TYPE 2, Depression, General Anxiety Disorder, Personality Disorder - Borderline, Post Traumatic Stress Disorder Hematology: Reports: Anemia Past Surgical History Past Surgical History: Reports: Hysterectomy, Orthopedic Surgery - carpel tunnel, Tubal Ligation Social History Information Source: [facility] Records Smoking Status: Unknown if Ever Smoked Frequency of Alcohol Use: None Hx Recreational Drug Use: No Hx Prescription Drug Abuse: Yes - SUISIDE ATTEMPT - Advance Directive Resuscitation Status: Full Code Family History Family History: Other - Unobtainable Parental Family History Reviewed: No - Unobtainable Children Family History Reviewed: No - Unobtainable Sibling(s) Family History Reviewed.: No - Unobtainable Medication/Allergy Home Medications: Doxepin HCl 150 mg PO QHS 05/15/18 Eszopiclone [Lunesta] 3 mg PO QHS 05/15/18 Gabapentin [Neurontin] 1,200 mg PO Q8 05/15/18 Levothyroxine Sodium [Synthroid 0.1 mg Tablet] 0.1 mg PO Q6AM 05/15/18 Metformin HCl [Metformin HCl ER] 500 mg PO BID 05/15/18 Ropinirole HCl [Requip] 1 mg PO QHS 05/15/18 Glimepiride [Amaryl 4 mg Tablet] 4 mg PO BID 05/16/18 Allergies/Adverse Reactions: ziprasidone HCl [From Geodon] Allergy (Unknown, Verified 05/25/14 13:27) FELT LIKE I CAN'T BREATH bromocriptine mesylate [From Parlodel] Allergy (Verified 05/25/14 13:27) lamotrigine [From Lamictal] Allergy (Verified 05/25/14 13:27) perphenazine [From Trilafon] Allergy (Verified 05/25/14 13:27) haloperidol [From Haldol] Adverse Reaction (Verified 05/25/14 13:27) Restlessness Review of Systems ROS unobtainable: Due to mental status Physical Exam Vital Signs: Temp Pulse Resp BP Pulse Ox 94.2 F L 12 104/70 98 02/13/19 01:46 02/13/19 01:46 02/13/19 01:46 02/13/19 01:46 Intake & Output 02/11/19 02/12/19 02/13/19 11:59 11:59 11:59 Intake Total 1000 Output Total 30 Balance 970 Weight 99 kg General appearance: PRESENT: no acute distress - Appears sedated and comfortable on current vent settings, obese, well-developed, well-nourished Head exam: PRESENT: atraumatic, normocephalic Eye exam: PRESENT: conjunctiva pink, EOMI, PERRLA. ABSENT: scleral icterus Ear exam: PRESENT: normal external ear exam Mouth exam: PRESENT: moist, tongue midline Neck exam: ABSENT: carotid bruit, JVD, lymphadenopathy, thyromegaly Respiratory exam: PRESENT: clear to auscultation yu. ABSENT: rales, rhonchi, w heezes Cardiovascular exam: PRESENT: RRR. ABSENT: diastolic murmur, rubs, systolic murmur Pulses: PRESENT: normal dorsalis pedis pul Vascular exam: PRESENT: normal capillary refill GI/Abdominal exam: PRESENT: normal bowel sounds, soft. ABSENT: distended, guarding, mass, organolmegaly, rebound, tenderness Rectal exam: PRESENT: deferred Extremities exam: PRESENT: full ROM. ABSENT: calf tenderness, clubbing, pedal edema Neurological exam: PRESENT: altered. ABSENT: alert, awake, oriented to person, oriented to place, CN II-XII grossly intact, motor sensory deficit Psychiatric exam: PRESENT: appropriate affect, normal mood. ABSENT: homicidal ideation, suicidal ideation Skin exam: PRESENT: dry, intact, warm. ABSENT: cyanosis, rash Results Laboratory Results: 02/13/19 00:05 02/13/19 00:05 02/13/19 02/13/19 02/13/19 00:05 00:05 00:05 WBC 7.6 RBC 5.43 H Hgb 14.6 Hct 44.8 MCV 82 MCH 26.9 L MCHC 32.7 RDW 14.0 Plt Count 183 Seg Neutrophils % 55.3 Carbonic Acid HCO3/H2CO3 Ratio ABG pH ABG pCO2 ABG pO2 ABG HCO3 ABG O2 Saturation ABG Base Excess FiO2 Sodium 136.5 L Potassium 4.3 Chloride 99 Carbon Dioxide 27 Anion Gap 11 BUN 15 Creatinine 0.53 Est GFR ( Amer) > 60 Glucose 280 H Calcium 10.1 Total Bilirubin 0.6 AST 68 H Alkaline Phosphatase 74 Total Protein 7.6 Albumin 4.6 Serum HCG, Qual NEGATIVE Urine Color Urine Appearance Urine pH Ur Specific [place] Urine Protein Urine Glucose (UA) Urine Ketones Urine Blood Urine Nitrite Ur Leukocyte Esterase Urine WBC (Auto) Urine RBC (Auto) 02/13/19 02/13/19 00:20 00:50 WBC RBC Hgb Hct MCV MCH MCHC RDW Plt Count Seg Neutrophils % Carbonic Acid 1.38 H HCO3/H2CO3 Ratio 19:1 ABG pH 7.38 ABG pCO2 45.9 H ABG pO2 73.6 L ABG HCO3 26.6 H ABG O2 Saturation 94.5 ABG Base Excess 1.0 FiO2 40% Sodium Potassium Chloride Carbon Dioxide Anion Gap BUN Creatinine Est GFR ( Amer) Glucose Calcium Total Bilirubin AST Alkaline Phosphatase Total Protein Albumin Serum HCG, Qual Urine Color DARK YELLOW Urine Appearance TURBID Urine pH 5.0 Ur Specific [place] 1.026 Urine Protein NEGATIVE Urine Glucose (UA) 150 H Urine Ketones NEGATIVE Urine Blood NEGATIVE Urine Nitrite NEGATIVE Ur Leukocyte Esterase NEGATIVE Urine WBC (Auto) 49 Urine RBC (Auto) 6 Impressions: Chest X-Ray 02/13/19 00:01 IMPRESSION: Satisfactory position of the endotracheal and nasogastric tubes. Retrocardiac airspace opacity. copyright 2011 [employer]- All Rights Reserved Head CT 02/13/19 00:01 IMPRESSION: No acute intracranial abnormality TECHNICAL DOCUMENTATION: Quality ID # 436: Final reports with documentation of one or more dose reduction techniques (e.g., Automated exposure control, adjustment of the mA and/or kV according to patient size, use of iterative reconstruction technique) copyright 2011 [employer]- All Rights Reserved Assessment and Plan - Diagnosis (1) Acute respiratory failure Qualifiers: Respiratory failure complication: hypoxia Qualified Code(s): J96.01 - Acute respiratory failure with hypoxia Is this a current diagnosis for this admission?: Yes Plan: Likely secondary to overdose of benzodiazepine and polypharmacy. Though emesis was suctioned from upper airway there is no radiographic evidence or physical evidence on exam for aspiration. Blood gas obtained 30 minutes following intubation is reassuring. Continue current vent settings follow-up a.m. ABG and chest x-ray. Sedation vacation every morning (2) Overdose Qualifiers: Encounter type: initial encounter Injury intent: undetermined intent Qualified Code(s): T50.904A - Poisoning by unspecified drugs, medicaments and biological substances, undetermined, initial encounter Is this a current diagnosis for this admission?: Yes Plan: Likely benzodiazepine and opiate, supportive care (3) Diabetes Is this a current diagnosis for this admission?: Yes Plan: Unclear outpatient requirement, Humalog every 6 as needed - Time Time Spent with patient: 25-34 minutes - Inpatient Certification Medical Necessity: Need Close Monitoring Due to Risk of Patient Decompensation
[2019-02-13 04:40] LABS: ANION GAP 11 (5-19); BLOOD UREA NITROGEN 13 mg/dL (7-20); CALCIUM 9.4 mg/dL (8.4-10.2); CARBON DIOXIDE 25 mmol/L (22-30); CHLORIDE 100 mmol/L (98-107); GLUCOSE 297 mg/dL (75-110); POTASSIUM 4.2 mmol/L (3.6-5.0)
[2019-02-13 05:24] LABS: ARTERIAL BLOOD BASE EXCESS 1.3 mmol/L; ARTERIAL BLOOD H2CO3 1.46 mmol/L (1.05-1.35); ARTERIAL BLOOD HCO3 27.3 mmol/L (20-24); ARTERIAL BLOOD O2 SATURATION 92.7 % (94-98); ARTERIAL BLOOD PCO2 48.4 mmHg (35-45); ARTERIAL BLOOD PH 7.37 (7.35-7.45); ARTERIAL BLOOD PO2 67.3 mmHg (80-100); ARTERIAL BLOOD TOTAL CO2 28.8 mmol/L (21-25)
[2019-02-13] MEDS: INSULIN LISPRO 100 UNIT/ML 3 ML VIAL SUBCUT SCH ×3 (05:32→22:00)
[2019-02-13] MEDS: HEPARIN SOD (PORCINE) 5,000 UNIT/ML 1 ML VIAL SUBCUT SCH ×3 (05:32→21:59)
[2019-02-13 05:39] LABS: ARTERIAL BLOOD FIO2 40%
[2019-02-13] MEDS ORDERED: IPRATROPIUM/ALBUTEROL 0.5-2.5 MG/3 ML AMPUL NEB SCH (08:00)
--- NOTE | 2019-02-13 10:28 | PDOC PROGRESS REPORT ---
Subjective Progress Note for:: 02/13/19 Subjective:: ICU Progress Note Pt was intubated. She passed her SBT and I extubated the patient. Reason For Visit: BENZO OD,ENCEPHALOPATHY HYPERCAPIC Physical Exam Vital Signs: Temp Pulse Resp BP Pulse Ox 96.8 F L 87 12 83/62 L 97 02/13/19 08:00 02/13/19 10:00 02/13/19 10:00 02/13/19 10:00 02/13/19 10:00 Intake & Output 02/12/19 02/13/19 02/14/19 06:59 06:59 06:59 Intake Total 1072 57 Output Total 440 375 Balance 632 -318 Weight 98.5 kg General appearance: PRESENT: no acute distress, well-developed, well-nourished Head exam: PRESENT: atraumatic, normocephalic Respiratory exam: PRESENT: clear to auscultation yu, tachypnea Cardiovascular exam: PRESENT: RRR GI/Abdominal exam: PRESENT: soft Extremities exam: PRESENT: other - no edema Results Laboratory Results: 02/13/19 00:05 02/13/19 03:35 02/13/19 02/13/19 02/13/19 00:05 00:05 00:05 WBC 7.6 RBC 5.43 H Hgb 14.6 Hct 44.8 MCV 82 MCH 26.9 L MCHC 32.7 RDW 14.0 Plt Count 183 Seg Neutrophils % 55.3 Carbonic Acid HCO3/H2CO3 Ratio ABG pH ABG pCO2 ABG pO2 ABG HCO3 ABG O2 Saturation ABG Base Excess FiO2 Sodium 136.5 L Potassium 4.3 Chloride 99 Carbon Dioxide 27 Anion Gap 11 BUN 15 Creatinine 0.53 Est GFR ( Amer) > 60 Glucose 280 H Calcium 10.1 Total Bilirubin 0.6 AST 68 H Alkaline Phosphatase 74 Total Protein 7.6 Albumin 4.6 Serum HCG, Qual NEGATIVE Urine Color Urine Appearance Urine pH Ur Specific [place] Urine Protein Urine Glucose (UA) Urine Ketones Urine Blood Urine Nitrite Ur Leukocyte Esterase Urine WBC (Auto) Urine RBC (Auto) 02/13/19 02/13/19 02/13/19 00:20 00:50 03:35 WBC RBC Hgb Hct MCV MCH MCHC RDW Plt Count Seg Neutrophils % Carbonic Acid 1.38 H HCO3/H2CO3 Ratio 19:1 ABG pH 7.38 ABG pCO2 45.9 H ABG pO2 73.6 L ABG HCO3 26.6 H ABG O2 Saturation 94.5 ABG Base Excess 1.0 FiO2 40% Sodium 135.8 L Potassium 4.2 Chloride 100 Carbon Dioxide 25 Anion Gap 11 BUN 13 Creatinine 0.48 L Est GFR ( Amer) > 60 Glucose 297 H Calcium 9.4 Total Bilirubin AST Alkaline Phosphatase Total Protein Albumin Serum HCG, Qual Urine Color DARK YELLOW Urine Appearance TURBID Urine pH 5.0 Ur Specific [place] 1.026 Urine Protein NEGATIVE Urine Glucose (UA) 150 H Urine Ketones NEGATIVE Urine Blood NEGATIVE Urine Nitrite NEGATIVE Ur Leukocyte Esterase NEGATIVE Urine WBC (Auto) 49 Urine RBC (Auto) 6 02/13/19 05:09 WBC RBC Hgb Hct MCV MCH MCHC RDW Plt Count Seg Neutrophils % Carbonic Acid 1.46 H HCO3/H2CO3 Ratio 18:1 ABG pH 7.37 ABG pCO2 48.4 H ABG pO2 67.3 L ABG HCO3 27.3 H ABG O2 Saturation 92.7 L ABG Base Excess 1.3 FiO2 40% Sodium Potassium Chloride Carbon Dioxide Anion Gap BUN Creatinine Est GFR ( Amer) Glucose Calcium Total Bilirubin AST Alkaline Phosphatase Total Protein Albumin Serum HCG, Qual Urine Color Urine Appearance Urine pH Ur Specific [place] Urine Protein Urine Glucose (UA) Urine Ketones Urine Blood Urine Nitrite Ur Leukocyte Esterase Urine WBC (Auto) Urine RBC (Auto) Impressions: Chest X-Ray 02/13/19 00:01 IMPRESSION: Satisfactory position of the endotracheal and nasogastric tubes. Retrocardiac airspace opacity. copyright 2011 [employer]- All Rights Reserved Head CT 02/13/19 00:01 IMPRESSION: No acute intracranial abnormality TECHNICAL DOCUMENTATION: Quality ID # 436: Final reports with documentation of one or more dose reduction techniques (e.g., Automated exposure control, adjustment of the mA and/or kV according to patient size, use of iterative reconstruction technique) copyright 2011 [employer]- All Rights Reserved Assessment & Plan - Diagnosis (1) Acute respiratory failure Qualifiers: Respiratory failure complication: hypoxia Qualified Code(s): J96.01 - Acute respiratory failure with hypoxia Is this a current diagnosis for this admission?: Yes (2) Overdose Qualifiers: Encounter type: initial encounter Injury intent: undetermined intent Qualified Code(s): T50.904A - Poisoning by unspecified drugs, medicaments and biological substances, undetermined, initial encounter Is this a current diagnosis for this admission?: Yes (3) Aspiration pneumonia Qualifiers: Laterality: unspecified laterality Lung location: unspecified part of lung Is this a current diagnosis for this admission?: Yes - Plan Summary Plan Summary: Assessment: Critically ill 48 yo woman with acute respiratory failure, drug overdose, aspiration PNA Plan: 1. Respiratory: acute respiratory failure due to drug overdose, resolved. I extubated the patient today. 2. Pulmonary: aspiration PNA. Will start Unasyn. Check cultures 3. CV: heart rate and BP acceptable 4. Psych: drug overdose, polysubstance abuse, chronic pain, PTSD, ADHD. Will consult psychiatry 5. Nutrition: regular diet 6. Prophylaxis: sq heparin Critical care time= 40 min, excluding procedures
[2019-02-13] MEDS: AMPICILLIN SODIUM/SULBACTAM NA 1.5 GM in NORMAL SALINE 50 ML IV SCH ×3 (11:28→21:56)
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
[2019-02-13] MEDS ORDERED: INSULIN LISPRO 100 UNIT/ML 3 ML VIAL ONE (18:33)
[2019-02-13] MEDS: GABAPENTIN 400 MG CAPSULE PO SCH (18:38)
[2019-02-13] MEDS: DOXEPIN HCL 25 MG CAPSULE PO SCH (22:00)
[2019-02-14 02:47] LABS: ANION GAP 8 (5-19); BLOOD UREA NITROGEN 7 mg/dL (7-20); CALCIUM 9.5 mg/dL (8.4-10.2); CARBON DIOXIDE 28 mmol/L (22-30); CHLORIDE 104 mmol/L (98-107); GLUCOSE 136 mg/dL (75-110)
[2019-02-14] MEDS: AMPICILLIN SODIUM/SULBACTAM NA 1.5 GM in NORMAL SALINE 50 ML IV SCH (03:59)
[2019-02-14] MEDS: ACETAMINOPHEN 325 MG TABLET NG PRN ×2 (04:23→21:40)
[2019-02-14] MEDS: HEPARIN SOD (PORCINE) 5,000 UNIT/ML 1 ML VIAL SUBCUT SCH ×3 (05:40→21:39)
[2019-02-14 06:15] LABS: ABSOLUTE EOSINOPHILS # (AUTO) 0.1 10^3/uL (0.0-0.6); ABSOLUTE LYMPHOCYTES (AUTO) 3.6 10^3/uL (0.5-4.7); ABSOLUTE MONOCYTES (AUTO) 0.4 10^3/uL (0.1-1.4); ABSOLUTE NEUT (AUTO) 3.7 10^3/uL (1.7-8.2); BASOPHILS % (AUTO) 0.6 % (0-2); EOSINOPHILS % (AUTO) 0.9 % (0-6); HEMATOCRIT 40.1 % (36.0-47.0); HEMOGLOBIN 13.3 g/dL (12.0-15.5); LYMPHOCYTES % (AUTO) 45.8 % (13-45); MEAN CORPUSCULAR HEMOGLOBIN 27.1 pg (27.0-33.4); MEAN CORPUSCULAR HGB CONC 33.3 g/dL (32.0-36.0); MEAN CORPUSCULAR VOLUME 81 fl (80-97); MONOCYTES % (AUTO) 5.7 % (3-13); PLATELET COUNT 164 10^3/uL (150-450); RED BLOOD COUNT 4.93 10^6/uL (3.72-5.28); RED CELL DISTRIBUTION WIDTH 14.1 % (11.5-14.0); TOTAL CELLS COUNTED % (AUTO) 100 %; WHITE BLOOD COUNT 7.8 10^3/uL (4.0-10.5)
[2019-02-14 06:19] LABS: ARTERIAL BLOOD BASE EXCESS 3.3 mmol/L; ARTERIAL BLOOD H2CO3 1.29 mmol/L (1.05-1.35); ARTERIAL BLOOD O2 SATURATION 88.1 % (94-98); ARTERIAL BLOOD PCO2 42.9 mmHg (35-45); ARTERIAL BLOOD PH 7.43 (7.35-7.45); ARTERIAL BLOOD PO2 52.6 mmHg (80-100); ARTERIAL BLOOD TOTAL CO2 29.3 mmol/L (21-25)
[2019-02-14 06:20] LABS: ARTERIAL BLOOD FIO2 ROOM AIR
[2019-02-14 06:35] LABS: BLOOD UREA NITROGEN 7 mg/dL (7-20); CALCIUM 9.4 mg/dL (8.4-10.2); GLUCOSE 171 mg/dL (75-110); POTASSIUM 3.8 mmol/L (3.6-5.0)
[2019-02-14 06:36] LABS: ANION GAP 7 (5-19); CARBON DIOXIDE 27 mmol/L (22-30); CHLORIDE 105 mmol/L (98-107)
[2019-02-14] MEDS: INSULIN LISPRO 100 UNIT/ML 3 ML VIAL SUBCUT SCH ×2 (08:02→11:58)
--- NOTE | 2019-02-14 08:30 | RADIOLOGY REPORT (SQ) ---
EXAM DESCRIPTION: CHEST SINGLE VIEW COMPLETED DATE/TIME: 02/14/2019 5:54 am REASON FOR STUDY: aspiration PNA COMPARISON: AP view of the chest from 02/13/2019. EXAM PARAMETERS: NUMBER OF VIEWS: One view. TECHNIQUE: Single frontal radiographic view of the chest acquired. RADIATION DOSE: NA LIMITATIONS: None. FINDINGS: LUNGS AND PLEURA: The aeration of the left retrocardiac space is and approved. There is n o consolidation, pleural effusion or pneumothorax. MEDIASTINUM AND HILAR STRUCTURES: Stable mediastinal and hilar contours. HEART AND VASCULAR STRUCTURES: The cardiac silhouette and pulmonary vasculature within normal limits given the low inspiratory lung volumes. BONES: No acute findings. HARDWARE: The endotracheal and enteric tubes are no longer in place. OTHER: ACDF hardware in the cervical spine. IMPRESSION: Status post extubation. The aeration of the left lower lobe is improved compared to 01/17, in particular the airspace opacity described on the prior radiograph is no longer present. TECHNICAL DOCUMENTATION: JOB ID: [id number] [employer]- All Rights Reserved Reading location - IP/workstation name: [email or web address] [email or web address]
--- NOTE | 2019-02-14 09:10 | PDOC PROGRESS REPORT ---
Subjective Progress Note for:: 02/14/19 Subjective:: ICU progress note. Pt was extubated yesterday. No acute overnight events. No complaints this am. Reason For Visit: BENZO OD,ENCEPHALOPATHY HYPERCAPIC Physical Exam Vital Signs: Temp Pulse Resp BP Pulse Ox 98.6 F 78 19 124/75 94 02/14/19 08:00 02/14/19 08:00 02/14/19 08:00 02/14/19 08:00 02/14/19 08:00 Intake & Output 02/13/19 02/14/19 02/15/19 06:59 06:59 06:59 Intake Total 1072 327 Output Total 440 2880 0 Balance 632 -2553 0 Weight 98.5 kg 98.1 kg General appearance: PRESENT: no acute distress, well-developed, well-nourished Head exam: PRESENT: atraumatic, normocephalic Respiratory exam: PRESENT: clear to auscultation yu, unlabored Cardiovascular exam: PRESENT: RRR GI/Abdominal exam: PRESENT: soft Extremities exam: PRESENT: other - no edema Results Laboratory Results: 02/14/19 05:57 02/14/19 05:57 02/14/19 02/14/19 02/14/19 01:53 05:55 05:57 WBC 7.8 RBC 4.93 Hgb 13.3 Hct 40.1 MCV 81 MCH 27.1 MCHC 33.3 RDW 14.1 H Plt Count 164 Seg Neutrophils % 47.0 Carbonic Acid 1.29 HCO3/H2CO3 Ratio 21:1 ABG pH 7.43 ABG pCO2 42.9 ABG pO2 52.6 L ABG HCO3 28.0 H ABG O2 Saturation 88.1 L ABG Base Excess 3.3 FiO2 ROOM AIR Sodium 140.3 Potassium 4.0 Chloride 104 Carbon Dioxide 28 Anion Gap 8 BUN 7 Creatinine 0.52 Est GFR ( Amer) > 60 Glucose 136 H Calcium 9.5 02/14/19 05:57 WBC RBC Hgb Hct MCV MCH MCHC RDW Plt Count Seg Neutrophils % Carbonic Acid HCO3/H2CO3 Ratio ABG pH ABG pCO2 ABG pO2 ABG HCO3 ABG O2 Saturation ABG Base Excess FiO2 Sodium 139.2 Potassium 3.8 Chloride 105 Carbon Dioxide 27 Anion Gap 7 BUN 7 Creatinine 0.51 L Est GFR ( Amer) > 60 Glucose 171 H Calcium 9.4 Impressions: Head CT 02/13/19 00:01 IMPRESSION: No acute intracranial abnormality TECHNICAL DOCUMENTATION: Quality ID # 436: Final reports with documentation of one or more dose reduction techniques (e.g., Automated exposure control, adjustment of the mA and/or kV according to patient size, use of iterative reconstruction technique) copyright 2010 [employer]- All Rights Reserved Chest X-Ray 02/14/19 06:00 IMPRESSION: Status post extubation. The aeration of the left lower lobe is i mproved compared to 02/13/2019, in particular the airspace opacity described on the prior radiograph is no longer present. Assessment & Plan - Diagnosis (1) Acute respiratory failure Qualifiers: Respiratory failure complication: hypoxia Qualified Code(s): J96.01 - Acute respiratory failure with hypoxia Is this a current diagnosis for this admission?: Yes (2) Overdose Qualifiers: Encounter type: initial encounter Injury intent: undetermined intent Qualified Code(s): T50.904A - Poisoning by unspecified drugs, medicaments and biological substances, undetermined, initial encounter Is this a current diagnosis for this admission?: Yes - Plan Summary Plan Summary: Assessment: 48 yo woman with acute respiratory failure, drug overdose, Plan: 1. Respiratory: acute respiratory failure due to drug overdose, resolved. Pt was extubated yesterday. Is stable on nasal cannula 2. Pulmonary: aspiration PNA, less likely. Retrocardia opacity seen on initial CXR has resolved. Pt is afebrile, has normal WBC, cultures NGTD. Will d/c unasyan 3. CV: heart rate and BP acceptable 4. Psych: drug overdose, polysubstance abuse, chronic pain, PTSD, ADHD. Psych consulted. Meds adjusted. 5. Uro: h/o neurogenic bladder. Straight cath as needed. 5. Nutrition: regular diet 6. Prophylaxis: sq heparin 7. Disposition: stable for tranfer out of the ICU. Home when ok with psychiatry.
[2019-02-14] MEDS: GABAPENTIN 400 MG CAPSULE PO SCH ×2 (11:59→18:33)
[2019-02-14] MEDS ORDERED: DEXTROSE 40% GEL 15 GM TUBE PO PRN ×2 (20:29)
[2019-02-14] MEDS ORDERED: DEXTROSE 50%-WATER 25 GM/50 ML DISP.SYRIN IV PRN ×2 (20:29)
[2019-02-14] MEDS ORDERED: GLUCAGON,HUMAN RECOMB 1 MG INJ IM PRN (20:29)
--- NOTE | 2019-02-14 20:51 | EKG REPORT ---
SEVERITY:- ABNORMAL ECG - SINUS RHYTHM NONSPECIFIC INTRAVENTRICULAR CONDUCTION DELAY : Confirmed by: Kristin Valladares MD 14-Feb-2019 20:50:47
[2019-02-14 21:14] LABS: FREE T3 2.46 pg/mL (2.77-5.27); FREE T4 (FREE THYROXINE) 1.04 ng/dL (0.78-2.19)
[2019-02-14] MEDS: INSULIN REG, HUMAN 100 UNIT/ML 3 ML VIAL (PYX) SUBCUT SCH (21:39)
[2019-02-14] MEDS: DOXEPIN HCL 25 MG CAPSULE PO SCH (21:41)
[2019-02-15 04:36] LABS: ABSOLUTE EOSINOPHILS # (AUTO) 0.1 10^3/uL (0.0-0.6); ABSOLUTE LYMPHOCYTES (AUTO) 3.7 10^3/uL (0.5-4.7); ABSOLUTE MONOCYTES (AUTO) 0.4 10^3/uL (0.1-1.4); ABSOLUTE NEUT (AUTO) 2.9 10^3/uL (1.7-8.2); BASOPHILS % (AUTO) 0.5 % (0-2); EOSINOPHILS % (AUTO) 1.2 % (0-6); HEMOGLOBIN 13.8 g/dL (12.0-15.5); LYMPHOCYTES % (AUTO) 51.5 % (13-45); MEAN CORPUSCULAR HEMOGLOBIN 26.9 pg (27.0-33.4); MEAN CORPUSCULAR HGB CONC 32.9 g/dL (32.0-36.0); MEAN CORPUSCULAR VOLUME 82 fl (80-97); MONOCYTES % (AUTO) 6.2 % (3-13); PLATELET COUNT 173 10^3/uL (150-450); RED BLOOD COUNT 5.15 10^6/uL (3.72-5.28); RED CELL DISTRIBUTION WIDTH 13.7 % (11.5-14.0); SEGMENTED NEUTROPHILS % (AUTO) 40.6 % (42-78); TOTAL CELLS COUNTED % (AUTO) 100 %; WHITE BLOOD COUNT 7.3 10^3/uL (4.0-10.5)
[2019-02-15 04:59] LABS: ANION GAP 9 (5-19); BLOOD UREA NITROGEN 8 mg/dL (7-20); CALCIUM 9.9 mg/dL (8.4-10.2); CARBON DIOXIDE 29 mmol/L (22-30); CHLORIDE 102 mmol/L (98-107); CHOLESTEROL 230.02 mg/dL (0-200); GLUCOSE 182 mg/dL (75-110); POTASSIUM 3.8 mmol/L (3.6-5.0); TRIGLYCERIDES 306 mg/dL (<150)
[2019-02-15 05:10] LABS: DIRECT LDL 144 mg/dL (<100)
[2019-02-15 05:13] LABS: VLDL CHOLESTEROL 61.2 mg/dL (10-31)
[2019-02-15] MEDS: HEPARIN SOD (PORCINE) 5,000 UNIT/ML 1 ML VIAL SUBCUT SCH ×2 (06:31→14:25)
[2019-02-15 07:21] VITALS: BP 131/89
[2019-02-15] MEDS: INSULIN REG, HUMAN 100 UNIT/ML 3 ML VIAL (PYX) SUBCUT SCH ×2 (08:02→12:10)
--- NOTE | 2019-02-15 09:00 | PDOC PROGRESS REPORT ---
Subjective Progress Note for:: 02/15/19 Subjective:: ICU Progress Note Pt awaiting transfer out of ICU. She wants to go home. Reason For Visit: BENZO OD,ENCEPHALOPATHY HYPERCAPIC Physical Exam Vital Signs: Temp Pulse Resp BP Pulse Ox 98.4 F 70 14 131/89 H 95 02/15/19 07:20 02/15/19 07:20 02/15/19 07:20 02/15/19 07:20 02/15/19 07:20 Intake & Output 02/14/19 02/15/19 02/16/19 06:59 06:59 06:59 Intake Total 327 Output Total 2880 0 Balance -2553 0 Weight 98.1 kg 96.1 kg General appearance: PRESENT: no acute distress, well-developed, well-nourished Respiratory exam: PRESENT: clear to auscultation yu, unlabored Cardiovascular exam: PRESENT: RRR GI/Abdominal exam: PRESENT: soft Extremities exam: PRESENT: other - no edema Neurological exam: PRESENT: alert Results Laboratory Results: 02/15/19 04:18 02/15/19 04:18 02/14/19 02/15/19 02/15/19 05:57 04:18 04:18 WBC 7.3 RBC 5.15 Hgb 13.8 Hct 42.0 MCV 82 MCH 26.9 L MCHC 32.9 RDW 13.7 Plt Count 173 Seg Neutrophils % 40.6 L Sodium 140.4 Potassium 3.8 Chloride 102 Carbon Dioxide 29 Anion Gap 9 BUN 8 Creatinine 0.57 Est GFR ( Amer) > 60 Glucose 182 H Calcium 9.9 Magnesium 1.7 Triglycerides 306 H Cholesterol 230.02 H LDL Cholesterol Direct 144 H VLDL Cholesterol 61.2 H HDL Cholesterol 63 TSH Free T4 1.04 Free T3 pg/mL 2.46 L 02/15/19 04:18 WBC RBC Hgb Hct MCV MCH MCHC RDW Plt Count Seg Neutrophils % Sodium Potassium Chloride Carbon Dioxide Anion Gap BUN Creatinine Est GFR ( Amer) Glucose Calcium Magnesium Triglycerides Cholesterol LDL Cholesterol Direct VLDL Cholesterol HDL Cholesterol TSH 2.64 Free T4 Free T3 pg/mL Impressions: Head CT 02/13/19 00:01 IMPRESSION: No acute intracranial abnormality TECHNICAL DOCUMENTATION: Quality ID # [id number]: Final reports with documentation of one or more dose reduction techniques (e.g., Automated exposure control, adjustment of the mA and/or kV according to patient size, use of iterative reconstruction technique) copyright 2010 [employer]- All Rights Reserved Chest X-Ray 02/14/19 06:00 IMPRESSION: Status post extubation. The aeration of the left lower lobe is improved compared to 02/13/2019, in particular the airspace opacity described on the prior radiograph is no longer present. Assessment & Plan - Diagnosis (1) Acute respiratory failure Qualifiers: Respiratory failure complication: hypoxia Qualified Code(s): J96.01 - Acute respiratory failure with hypoxia Is this a current diagnosis for this admission?: Yes (2) Overdose Qualifiers: Encounter type: initial encounter Injury intent: undetermined intent Qualified Code(s): T50.904A - Poisoning by unspecified drugs, medicaments and biological substances, undetermined, initial encounter Is this a current diagnosis for this admission?: Yes - Plan Summary Plan Summary: Assessment: 48 yo woman with acute respiratory failure, drug overdose, Plan: 1. Respiratory: acute respiratory failure due to drug overdose, resolved. Pt was extubated 2 days ago. RA 2. Pulmonary: no PNA. ATBX stopped 3. CV: heart rate and BP acceptable 4. Psych: drug overdose, polysubstance abuse, chronic pain, PTSD, ADHD. Psych consulted. Meds adjusted. Awaiting psych recs 5. Uro: h/o neurogenic bladder. Straight cath as needed. 6. Immunologic. Pt reports h/o sarcoidosis for which she is on cellcept. Will resume home dose of cellcept 7. Endocrine: DM. Home diabets meds restarted 8. Nutrition: diabetic diet 9. Prophylaxis: sq heparin 10. Disposition: stable for tranfer out of the ICU. Home when ok with psychiatry.
[2019-02-15] MEDS ORDERED: GLIMEPIRIDE 4 MG TABLET PO SCH (10:00)
[2019-02-15] MEDS ORDERED: PIOGLITAZONE HCL 15 MG TABLET PO SCH (10:00)
[2019-02-15] MEDS: MYCOPHENOLATE MOFETIL 250 MG CAPSULE PO SCH ×2 (10:41→14:25)
[2019-02-15] MEDS: GABAPENTIN 400 MG CAPSULE PO SCH (10:42)
[2019-02-15] MEDS: ACETAMINOPHEN 325 MG TABLET NG PRN (10:43)
--- NOTE | 2019-02-15 11:47 | PSYCHOLOGICAL NOTE ---
Psych Note - Psych Note Date seen by psych provider: 02/15/19
--- NOTE | 2019-02-15 15:02 | Progress Note ---
Provider Note Provider Note: Spoke with Radha from psychiatry. Pt has been cleared to go home. Pt to follow up with her psychiatrist as an outpt.
--- NOTE | 2019-02-15 15:18 | PDOC DISCHARGE SUMMARY ---
Impression - Admit/DC Date/PCP Admission Date/Primary Care Provider: 02/13/19 01:26 HUYEN ROSA MD Discharge Date: 02/15/19 - Discharge Diagnosis (1) Acute respiratory failure Is this a current diagnosis for this admission?: Yes (2) Overdose Is this a current diagnosis for this admission?: Yes - Additional Information Resuscitation Status: Full Code Discharge Diet: Diabetic Discharge Activity: Activity As Tolerated Referrals: HUYEN ROSA MD [Primary Care Provider] - Follow up as needed Prescriptions: Doxepin HCl [Sinequan 25 mg Capsule] 50 mg PO QHS #30 capsule Home Medications: Eszopiclone [Lunesta] 3 mg PO QHS 05/15/18 Ropinirole HCl [Requip] 1 mg PO QHS 05/15/18 Glimepiride [Amaryl 4 mg Tablet] 4 mg PO BID 05/16/18 Alprazolam [Xanax] 1 mg PO BID 02/13/19 Cetirizine HCl [Zyrtec 10 mg Tablet] 1 tab PO DAILY 02/13/19 Dextroamphetamine/Amphetamine [Adderall 30 mg Tablet] 30 mg PO TID 02/13/19 Empagliflozin [Jardiance] 25 mg PO DAILY 02/13/19 Mycophenolate Mofetil [Cellcept] 1,500 mg PO TID 02/13/19 Ondansetron HCl [Zofran 8 mg Tablet] 8 mg PO Q8HP PRN 02/13/19 Oxycodone HCl 20 mg PO QID 02/13/19 Phentermine HCl 37.5 mg PO DAILY 02/13/19 Pioglitazone HCl [Actos] 15 mg PO DAILY 02/13/19 Rimicade 100 mg INJ ASDIR PRN 02/13/19 Acetaminophen [Tylenol 325 mg Tablet] 650 mg NG Q4HP PRN tablet 02/15/19 Doxepin HCl [Sinequan 25 mg Capsule] 50 mg PO QHS #30 capsule 02/15/19 Gabapentin [Neurontin 400 mg Capsule] 1,200 mg PO BID capsule 02/15/19 Glimepiride [Amaryl 4 mg Tablet] 4 mg PO BID tablet 02/15/19 Mycophenolate Mofetil [Cellcept 250 mg Capsule] 1,500 mg PO Q8 capsule 02/15/19 History of Present Illiness History of Present Illness: SIMBA GARCIA is a 48 year old female who was admitted with a drug overdose, respiratory failure, and possible aspiration PNA. Hospital Course Hospital Course: Pt was extubated one day after admission. It was determined that she did not have aspiration PNA. Pt was seen by pychiatry and started on doxepin. Psych cleared her to go home today. Assessment: 48 yo woman with acute respiratory failure, drug overdose, Plan: 1. Respiratory: acute respiratory failure due to drug overdose, resolved. Pt was extubated 2 days ago. stable on room air 2. Pulmonary: no PNA. ATBX stopped 3. CV: heart rate and BP acceptable 4. Psych: drug overdose, polysubstance abuse, chronic pain, PTSD, ADHD. Psych consulted. Meds adjusted. Cleared by psychicatry to go home 5. Uro: h/o neurogenic bladder. Straight cath as needed. 6. Immunologic. Pt reports h/o sarcoidosis for which she is on cellcept. Will resume home dose of cellcept 7. Endocrine: DM. Home diabets meds restarted 8. Nutrition: diabetic diet 9. Prophylaxis: sq heparin 10. Disposition: will discharge home. F/u with psychiatrist. Physical Exam Vital Signs: Temp Pulse Resp BP Pulse Ox 98.4 F 70 14 131/89 H 95 02/15/19 07:20 02/15/19 07:20 02/15/19 07:20 02/15/19 07:20 02/15/19 07:20 Intake & Output 02/14/19 02/15/19 02/16/19 06:59 06:59 06:59 Intake Total 327 200 Output Total 2880 0 Balance -2553 0 200 Weight 98.1 kg 96.1 kg Results Laboratory Results: WBC 7.3 10^3/uL (4.0-10.5) 02/15/19 04:18 RBC 5.15 10^6/uL (3.72-5.28) 02/15/19 04:18 Hgb 13.8 g/dL (12.0-15.5) 02/15/19 04:18 Hct 42.0 % (36.0-47.0) 02/15/19 04:18 MCV 82 fl (80-97) 02/15/19 04:18 MCH 26.9 pg (27.0-33.4) L 02/15/19 04:18 MCHC 32.9 g/dL (32.0-36.0) 02/15/19 04:18 RDW 13.7 % (11.5-14.0) 02/15/19 04:18 Plt Count 173 10^3/uL (150-450) 02/15/19 04:18 Lymph % (Auto) 51.5 % (13-45) H 02/15/19 04:18 [place] % (Auto) 6.2 % (3-13) 02/15/19 04:18 Eos % (Auto) 1.2 % (0-6) 02/15/19 04:18 Baso % (Auto) 0.5 % (0-2) 02/15/19 04:18 Absolute Neuts (auto) 2.9 10^3/uL (1.7-8.2) 02/15/19 04:18 Absolute Lymphs (auto) 3.7 10^3/uL (0.5-4.7) 02/15/19 04:18 Absolute Monos (auto) 0.4 10^3/uL (0.1-1.4) 02/15/19 04:18 Absolute Eos (auto) 0.1 10^3/uL (0.0-0.6) 02/15/19 04:18 Absolute Basos (auto) 0.0 10^3/uL (0.0-0.2) 02/15/19 04:18 Seg Neutrophils % 40.6 % (42-78) L 02/15/19 04:18 Carbonic Acid 1.29 mmol/L (1.05-1.35) 02/14/19 05:55 HCO3/H2CO3 Ratio 21:1 02/14/19 05:55 ABG pH 7.43 (7.35-7.45) 02/14/19 05:55 ABG pCO2 42.9 mmHg (35-45) 02/14/19 05:55 ABG pO2 52.6 mmHg (80-100) L 02/14/19 05:55 ABG HCO3 28.0 mmol/L (20-24) H 02/14/19 05:55 ABG Total CO2 29.3 mmol/L (21-25) H 02/14/19 05:55 ABG O2 Saturation 88.1 % (94-98) L 02/14/19 05:55 ABG Base Excess 3.3 mmol/L 02/14/19 05:55 FiO2 ROOM AIR 02/14/19 05:55 Sodium 140.4 mmol/L (137-145) 02/15/19 04:18 Potassium 3.8 mmol/L (3.6-5.0) 02/15/19 04:18 Chloride 102 mmol/L (98-107) 02/15/19 04:18 Carbon Dioxide 29 mmol/L (22-30) 02/15/19 04:18 Anion Gap 9 (5-19) 02/15/19 04:18 BUN 8 mg/dL (7-20) 02/15/19 04:18 Creatinine 0.57 mg/dL (0.52-1.25) 02/15/19 04:18 Est GFR ( Amer) > 60 (>60) 02/15/19 04:18 Est GFR (MDRD) Non-Af > 60 (>60) 02/15/19 04:18 Glucose 182 mg/dL (75-110) H 02/15/19 04:18 POC Glucose 285 mg/dL (70-110) H 02/15/19 12:03 Hemoglobin A1c % 9.6 % (4.7-6.0) H 02/15/19 04:18 Calcium 9.9 mg/dL (8.4-10.2) 02/15/19 04:18 Magnesium 1.7 mg/dL (1.6-2.3) 02/15/19 04:18 Total Bilirubin 0.6 mg/dL (0.2-1.3) 02/13/19 00:05 Direct Bilirubin 0.2 mg/dL (0.0-0.4) 02/13/19 00:05 Neonat Total Bilirubin Not Reportable 02/13/19 00:05 Neonat Direct Bilirubin Not Reportable 02/13/19 00:05 Neonat Indirect Bili Not Reportable 02/13/19 00:05 AST 68 U/L (14-36) H 02/13/19 00:05 ALT 122 U/L (<35) 02/13/19 00:05 Alkaline Phosphatase 74 U/L (38-126) 02/13/19 00:05 Total Protein 7.6 g/dL (6.3-8.2) 02/13/19 00:05 Albumin 4.6 g/dL (3.5-5.0) 02/13/19 00:05 Triglycerides 306 mg/dL (<150) H 02/15/19 04:18 Cholesterol 230.02 mg/dL (0-200) H 02/15/19 04:18 LDL Cholesterol Direct 144 mg/dL (<100) H 02/15/19 04:18 VLDL Cholesterol 61.2 mg/dL (10-31) H 02/15/19 04:18 HDL Cholesterol 63 mg/dL (>40) 02/15/19 04:18 TSH 2.64 uIU/mL (0.47-4.68) 02/15/19 04:18 Free T4 1.04 ng/dL (0.78-2.19) 02/14/19 05:57 Free T3 pg/mL 2.46 pg/mL (2.77-5.27) L 02/14/19 05:57 Serum HCG, Qual NEGATIVE (NEGATIVE) 02/13/19 00:05 Urine Color DARK YELLOW 02/13/19 00:20 Urine Appearance TURBID 02/13/19 00:20 Urine pH 5.0 (5.0-9.0) 02/13/19 00:20 Ur Specific [place] 1.026 02/13/19 00:20 Urine Protein NEGATIVE mg/dL (NEGATIVE) 02/13/19 00:20 Urine Glucose (UA) 150 mg/dL (NEGATIVE) H 02/13/19 00:20 Urine Ketones NEGATIVE mg/dL (NEGATIVE) 02/13/19 00:20 Urine Blood NEGATIVE (NEGATIVE) 02/13/19 00:20 Urine Nitrite NEGATIVE (NEGATIVE) 02/13/19 00:20 Urine Bilirubin NEGATIVE (NEGATIVE) 02/13/19 00:20 Urine Urobilinogen NEGATIVE mg/dL (<2.0) 02/13/19 00:20 Ur Leukocyte Esterase NEGATIVE (NEGATIVE) 02/13/19 00:20 Urine WBC (Auto) 49 /HPF 02/13/19 00:20 Urine RBC (Auto) 6 /HPF 02/13/19 00:20 Amorphous Sediment Auto 1+ /HPF 02/13/19 00:20 Urine Ascorbic Acid NEGATIVE (NEGATIVE) 02/13/19 00:20 Salicylates < 1.0 mg/dL (2.0-20.0) L 02/13/19 00:05 Urine Opiates Screen UNCONFIRMED POSITIVE 02/13/19 00:20 Urine Methadone Screen NEGATIVE 02/13/19 00:20 Acetaminophen < 10 ug/mL (10-30) L 02/13/19 00:05 Ur Barbiturates Screen NEGATIVE 02/13/19 00:20 Ur Phencyclidine Scrn NEGATIVE 02/13/19 00:20 Ur Amphetamines Screen NEGATIVE 02/13/19 00:20 U Benzodiazepines Scrn UNCONFIRMED POSITIVE 02/13/19 00:20 Urine Cocaine Screen NEGATIVE 02/13/19 00:20 U Marijuana (THC) Screen NEGATIVE 02/13/19 00:20 Serum Alcohol < 10 mg/dL (NONE DETECTED) 02/13/19 00:05 Impressions: Chest X-Ray 02/13/19 00:01 IMPRESSION: Satisfactory position of the endotracheal and nasogastric tubes. Retrocardiac airspace opacity. copyright 2010 [employer]- All Rights Reserved Head CT 02/13/19 00:01 IMPRESSION: No acute intracranial abnormality TECHNICAL DOCUMENTATION: Quality ID # 436: Final reports with documentation of one or more dose reduction techniques (e.g., Automated exposure control, adjustment of the mA and/or kV according to patient size, use of iterative reconstruction technique) copyright 2010 [employer]- All Rights Reserved Chest X-Ray 02/14/19 06:00 IMPRESSION: Status post extubation. The aeration of the left lower lobe is improved compared to 02/13/2019, in particular the airspace opacity described on the prior radiograph is no longer present. Stroke Is this a Stroke Patient?: No Stroke Pt being discharged on Anti-thrombolytic therapy?: No Reason(s) for not prescribing Anti-thrombolytic therapy:: Not indicated Acute Heart Failure - Is this a Heart Failure Patient?: No
--- NOTE | 2019-02-15 16:35 | PSYCHOLOGICAL NOTE ---
Psych Note - Psych Note Date seen by psych provider: 02/15/19 Time seen by psych provider: 14:09 - Evaluation from [id number]. Psych Note: Presenting Problem: Benzodiazepine OD, son found patient in the bathroom unresponsive so called EMS, Family administered Narcan 4MG Intranasal and EMS did 2MG IV without effectiveness, Hx overuse of narcotics and benzos, Hx of PTSD/Bipolar II/ADHD/Depression/Anxiety, Chronic Pain (cervical spine injury), thyroid issue (synthroid) and diabetic (2 medications). Medical admit for acute respiratory failure, OD, diabetes. Allergies include: Geodon (couldn't breathe), Lamictal, Haldol (restlessness), Trilafon and Parlodel. Today she admitted again she misuses her benzos and is not honest with outpatient medication provider Dr. Sullivan at [facility]. She talked about pain management techniques/procedures she has had (lumbar radio frequency abrasion end of last month, was 2nd time) and talking to Dr. Robert for further pain management recommendations. She stated she had been prescribed Zoloft for many years and when she went off it she "became a monster." She reported withdrawal symptoms of: bowels and incontinence as well as psychomotor agitation (inability to sit still). She stated "I don't want to , I want to be here for my son as long as possible, I cannot take Xanax anymore, I need to be honest with Dr. Sullivan, we need to list Xanax as an allergy." She stated she is prescribed Adderall but has been taking Phentermine for weight loss so does not take both. Patient alert and oriented x5 with linear thinking, mood was euthymic with congruent affect, she denied SI/HI and gave son as reason to live, she made fair eye contact, she was able to engage and carry on dialogue conversation which was within normal limits for rate/tone/prosody. She gave verbal consent for [facility] to coordinate via fax patient refer ral form with Dr. Sullivan/[facility]. [employer] worker came to visit patient in person. Diagnosis: OD Hx of misuse/overuse narcotics and benzos Depressive Disorder Impression/Plan: Patient is cleared from acute psychiatric services. Patient alert and oriented x5 with linear thinking, mood was euthymic with congruent affect, she denied SI/HI and gave son as reason to live, she made fair eye contact, she was able to engage and carry on dialogue conversation which was within normal limits for rate/tone/prosody.[employer]of[employer] came to see patient in person and provided business card. Patient verbally gave consent to coordinate with Dr. Sullivan at [facility] regarding medication changes and overuse of benzos. Completed patient referral form and faxed to [facility] regarding this information. Encouraged detox and mentioned could link and make referral to [facility] but patient declined inpatient treatment. She stated she would walk in to [facility] tomorrow (02/16/19) for follow up. Provided outpatient MH resource sheet which documented follow up with [facility] within 3-5 days/kristin and possibly as walk in since already established patient. Also highlighted IFS MCM. Provided the [facility] resource sheet which listed the detox facilities (to include [facility]). Consulted with Dr. Dykes regarding the management and care of patient. Attending Hospitalist made aware of recommendations.
--- NOTE | 2019-02-15 16:36 | PSYCHOLOGICAL NOTE ---
Psych Note - Psych Note Date seen by psych provider: 02/14/19 Time seen by psych provider: 16:29 Psych Note: Presenting Problem: Benzodiazepine OD, son found patient in the bathroom unresponsive so called EMS, Family administered Narcan 4MG Intranasal and EMS did 2MG IV without effectiveness, Hx overuse of narcotics and benzos, Hx of PTSD/Bipolar II/ADHD/Depression/Anxiety, Chronic Pain (cervical spine injury), thyroid issue (synthroid) and diabetic (2 medications). Medical admit for acute respiratory failure, OD, diabetes. Allergies include: Geodon (couldn't breathe), Lamictal, Haldol (restlessness), Trilafon and Parlodel. Patient was lethargic yesterday from extubation in the morning. Medication adjustments just took place yesterday. Diagnosis: OD Hx of misuse/overuse narcotics and benzos Depressive Disorder Impression/Plan: Medication changes took place yesterday evening so want a full day of changes. Patient lethargic yesterday due to intubation/extubation. Linked to [facility]. Will encourage detox when reassess tomorrow. Consulted with Dr. Dykes regarding the management and care of patient.
== END 2019-02-15 16:15 | disposition home or self-care (01) | DRG 917 ==
LOC: ER 23:47 → EH 02-13 01:26 → ICU 02-13 02:45
PROVIDERS: ADMIT Internal Medicine; ATTEND Internal Medicine
PROC: 5A1935Z Respiratory Ventilation, Less than 24 Consecutive Hours (ICD-10-PCS; principal; 2019-02-13)
PROC: 0BH17EZ Insertion of Endotracheal Airway into Trachea, Via Natural or Artificial Opening (ICD-10-PCS; 2019-02-13)
DX: T42.4X1A Poisoning by benzodiazepines, accidental (unintentional), initial encounter (principal); J96.01 Acute respiratory failure with hypoxia; F31.81 Bipolar II disorder; F11.20 Opioid dependence, uncomplicated; T68.XXXA Hypothermia, initial encounter; E11.9 Type 2 diabetes mellitus without complications; D86.9 Sarcoidosis, unspecified; D64.9 Anemia, unspecified; Y92.012 Bathroom of single-family (private) house as the place of occurrence of the external cause; G89.29 Other chronic pain; F43.10 Post-traumatic stress disorder, unspecified; F90.9 Attention-deficit hyperactivity disorder, unspecified type; N31.9 Neuromuscular dysfunction of bladder, unspecified; M48.00 Spinal stenosis, site unspecified; F41.9 Anxiety disorder, unspecified; E03.9 Hypothyroidism, unspecified; F60.3 Borderline personality disorder; R40.2412 Glasgow coma scale score 13-15, at arrival to emergency department; K21.9 Gastro-esophageal reflux disease without esophagitis; H40.059 Ocular hypertension, unspecified eye; F41.1 Generalized anxiety disorder; E66.9 Obesity, unspecified; F17.200 Nicotine dependence, unspecified, uncomplicated; Z79.84 Long term (current) use of oral hypoglycemic drugs; Z88.8 Allergy status to other drugs, medicaments and biological substances; Z68.37 Body mass index [BMI] 37.0-37.9, adult
CPT/HCPCS: 36415; 70450; 71045; 80048; 80053; 80061; 80307; 81001; 82803; 82962; 83036; 83735; 84439; 84443; 84481; 84703; 85025; 87040; 87070; 87077; 87186; 87205; 93005; 93010; 94002; 96361; 96374; 99291; J0295; J1644; J1815; J2310; J2704; J3490; J7030; J7517; J7620

== ENCOUNTER 2019-07-26 18:33 | Emergency (ER) | payer MEDICARE, MEDICAID ==
[2019-07-26 19:57] LABS: ABSOLUTE BASOPHILS # (AUTO) 0.1 10^3/uL (0.0-0.2); ABSOLUTE EOSINOPHILS # (AUTO) 0.1 10^3/uL (0.0-0.6); ABSOLUTE LYMPHOCYTES (AUTO) 3.5 10^3/uL (0.5-4.7); ABSOLUTE MONOCYTES (AUTO) 0.5 10^3/uL (0.1-1.4); ABSOLUTE NEUT (AUTO) 6.1 10^3/uL (1.7-8.2); BASOPHILS % (AUTO) 0.5 % (0-2); EOSINOPHILS % (AUTO) 1.2 % (0-6); HEMATOCRIT 44.2 % (36.0-47.0); HEMOGLOBIN 14.7 g/dL (12.0-15.5); LYMPHOCYTES % (AUTO) 33.9 % (13-45); MEAN CORPUSCULAR HEMOGLOBIN 27.2 pg (27.0-33.4); MEAN CORPUSCULAR HGB CONC 33.1 g/dL (32.0-36.0); MEAN CORPUSCULAR VOLUME 82 fl (80-97); MONOCYTES % (AUTO) 5.3 % (3-13); PLATELET COUNT 313 10^3/uL (150-450); RED BLOOD COUNT 5.39 10^6/uL (3.72-5.28); RED CELL DISTRIBUTION WIDTH 13.4 % (11.5-14.0); SEGMENTED NEUTROPHILS % (AUTO) 59.1 % (42-78); TOTAL CELLS COUNTED % (AUTO) 100 %; WHITE BLOOD COUNT 10.3 10^3/uL (4.0-10.5)
[2019-07-26 20:16] LABS: ALKALINE PHOSPHATASE 94 U/L (38-126); ANION GAP 14 (5-19); ASPARTATE AMINO TRANSFERASE 61 U/L (14-36); BILIRUBIN,DIRECT 0.2 mg/dL (0.0-0.4); BILIRUBIN,TOTAL 0.6 mg/dL (0.2-1.3); BLOOD UREA NITROGEN 15 mg/dL (7-20); CALCIUM 10.3 mg/dL (8.4-10.2); CARBON DIOXIDE 24 mmol/L (22-30); CHLORIDE 100 mmol/L (98-107); GLUCOSE 200 mg/dL (75-110); POTASSIUM 4.7 mmol/L (3.6-5.0); TOTAL PROTEIN 8.1 g/dL (6.3-8.2)
[2019-07-26 20:17] LABS: ACETAMINOPHEN < 10 ug/mL (10-30); ALCOHOL < 10 mg/dL (NONE DETECTED); SALICYLATE < 1.0 mg/dL (2.0-20.0)
[2019-07-26 20:24] LABS: APPEARANCE,URINE CLEAR; BILIRUBIN,URINE NEGATIVE (NEGATIVE); COLOR,URINE YELLOW; GLUCOSE, URINE >=500 mg/dL (NEGATIVE); KETONES,URINE 20 mg/dL (NEGATIVE); LEUKOCYTE ESTERASE,URINE NEGATIVE (NEGATIVE); NITRITE,URINE NEGATIVE (NEGATIVE); PROTEIN,URINE NEGATIVE (NEGATIVE); URINE SPECIFIC GRAVITY 1.037; UROBILINOGEN,URINE NEGATIVE mg/dL (<2.0)
[2019-07-26 20:33] LABS: ADD MANUAL MICROSCOPIC YES; RBC,URINE RARE /HPF; WBC,URINE 0-1 /HPF
[2019-07-26 20:39] LABS: URINE BARBITURATES SCREEN NEGATIVE; URINE BENZODIAZEPINES SCREEN NEGATIVE; URINE COCAINE SCREEN NEGATIVE; URINE MARIJUANA (THC) SCREEN NEGATIVE; URINE METHADONE SCREEN NEGATIVE; URINE PHENCYCLIDINE SCREEN NEGATIVE
[2019-07-26 20:40] LABS: URINE AMPHETAMINES SCREEN UNCONFIRMED POSITIVE
--- NOTE | 2019-07-26 20:45 | ER Document Report ---
ED General - General Chief Complaint: Suicidal Ideation Stated Complaint: SUICIDAL IDEATION WITH INTENT Time Seen by Provider: 07/26/19 19:23 Primary Care Provider: KARIS VILLALTA MD [Primary Care Provider] - Follow up as needed Notes: 49 y/o female presents for SI with plan to overdose on pills. Pt states these thoughts have been ongoing since last February but worse the past month. States her told her in February he did not want to be to her anymore. Pt attempted suicide by OD in February where she states she was in the ICU intubated. Pt denies any fever/chills, nausea/vomiting, abdominal pain, or any other new pain besides her usual chronic pain. TRAVEL OUTSIDE OF THE [place] IN LAST 30 DAYS: No - Related Data Allergies/Adverse Reactions: ziprasidone HCl [From Geodon] Allergy (Unknown, Verified 05/25/14 13:27) FELT LIKE I CAN'T BREATH bromocriptine mesylate [From Parlodel] Allergy (Verified 05/25/14 13:27) lamotrigine [From Lamictal] Allergy (Verified 05/25/14 13:27) perphenazine [From Trilafon] Allergy (Verified 05/25/14 13:27) haloperidol [From Haldol] Adverse Reaction (Verified 05/25/14 13:27) Restlessness Past Medical History - Social History Smoking Status: Unknown if Ever Smoked Chew tobacco use (# tins/day): No Drug Abuse: None Family History: Other - Unobtainable Patient has suicidal ideation: Yes Patient has homicidal ideation: No - Past Medical History Cardiac Medical History: Reports: Hx Hypertension - OCULAR Endocrine Medical History: Reports: Hx Diabetes Mellitus Type 1, Hx Diabetes Mellitus Type 2, Hx Hypothyroidism Renal/ Medical History: Denies: Hx Peritoneal Dialysis GI Medical History: Reports: Hx Gastroesophageal Reflux Disease Musculoskeletal Medical History: Reports Hx Musculoskeletal Deformity Psychiatric Medical History: Reports: Hx Anxiety, Hx Attention Deficit Hyperactivity Disorder, Hx Bipolar Disorder - TYPE 2, Hx Depression, Hx Personality Disorder - Borderline, Hx Post Traumatic Stress Disorder Past Surgical History: Reports: Hx Gynecologic Surgery - tubal ligation NovaSure, Hx Hysterectomy, Hx Neurologic Surgery, Hx Oral Surgery, Hx Orthopedic Surgery - carpel tunnel, Hx Tubal Ligation - Immunizations Hx Diphtheria, Pertussis, Tetanus Vaccination: No Hx Pneumococcal Vaccination: 12/13/12 Review of Systems - Review of Systems Constitutional: No symptoms reported EENT: No symptoms reported Cardiovascular: No symptoms reported Respiratory: No symptoms reported Gastrointestinal: No symptoms reported Genitourinary: No symptoms reported Female Genitourinary: No symptoms reported Musculoskeletal: No symptoms reported Skin: No symptoms reported Hematologic/Lymphatic: No symptoms reported Neurological/Psychological: Suicidal ideation Physical Exam - Vital signs Vitals: Temp Pulse Resp BP Pulse Ox 98.6 F 111 H 20 133/78 H 96 07/26/19 18:33 07/26/19 18:33 07/26/19 18:33 07/26/19 18:33 07/26/19 18:33 - General General appearance: Appears well, Alert In distress: None - HEENT Head: Normocephalic, Atraumatic - Respiratory Respiratory status: No respiratory distress Breath sounds: Normal Chest palpation: Normal - Cardiovascular Rhythm: Regular Murmur: No Friction rub: No Carolin's crunch: No - Abdominal Inspection: Normal Distension: No distension Tenderness: Nontender - Extremities General upper extremity: Normal inspection General lower extremity: Normal inspection - Neurological Neuro grossly intact: Yes Cognition: Normal - Psychological Notes: Suicidal ideation, depressed affect - Skin Skin Temperature: Warm Skin Moisture: Dry Skin Color: Normal Course - Re-evaluation Re-evalutation: 07/26/19 49 y/o female presents for SI with plan. Labwork initiated to medically clear pt for psych eval. 07/26/19 21:30 All home medications except Jardiance and prazosin ordered. Yamile carcamo RN called pharmacy to verify pt's home medications so she may be given these. 07/26/19 21:54 Glucose 200. UDS + amphetamines, pt is on adderall. Accuchecks ordered 5x d PRN. Also order for pt to self cath also placed. Pt is medically cleared to be seen by psych at this time. - Vital Signs Vital signs: Temp Pulse Resp BP Pulse Ox 98.6 F 111 H 20 133/78 H 96 07/26/19 18:33 07/26/19 18:33 07/26/19 18:33 07/26/19 18:33 07/26/19 18:33 - Laboratory Result Diagrams: 07/26/19 19:30 07/26/19 19:30 Laboratory results interpreted by me: 07/26/19 07/26/19 07/26/19 19:30 19:30 19:30 RBC 5.39 H Glucose 200 H Calcium 10.3 H AST 61 H ALT 89 H Urine Glucose (UA) >=500 H Urine Ketones 20 H Salicylates < 1.0 L Acetaminophen < 10 L Discharge - Discharge Clinical Impression: Suicidal ideation Condition: Stable Disposition: PSYCH HOSP/UNIT Referrals: KARIS VILLALTA MD [Primary Care Provider] - Follow up as needed
[2019-07-26] MEDS ORDERED: ONDANSETRON 4 MG TAB.RAPDIS PO PRN (21:13)
[2019-07-26] MEDS ORDERED: ROPINIROLE HCL 1 MG TABLET PO SCH (22:00)
[2019-07-26] MEDS ORDERED: DOXEPIN HCL 25 MG CAPSULE PO SCH (22:00)
[2019-07-27] MEDS ORDERED: DOXEPIN HCL 25 MG CAPSULE PO ONE (00:30)
[2019-07-27] MEDS: TIZANIDINE HCL 4 MG TABLET PO SCH ×2 (00:52→10:23)
[2019-07-27] MEDS: MYCOPHENOLATE MOFETIL 250 MG CAPSULE PO SCH ×2 (00:54→10:20)
[2019-07-27] MEDS: GABAPENTIN 300 MG CAPSULE PO SCH ×2 (00:55→10:24)
[2019-07-27] MEDS: PIOGLITAZONE HCL 15 MG TABLET PO SCH ×2 (00:55→10:21)
[2019-07-27] MEDS: SERTRALINE HCL 50 MG TABLET PO SCH ×2 (00:55→10:22)
[2019-07-27] MEDS: METFORMIN HCL 500 MG TABLET PO SCH ×2 (00:56→10:19)
[2019-07-27] MEDS: GLIMEPIRIDE 4 MG TABLET PO SCH ×2 (00:56→10:18)
[2019-07-27] MEDS: METOCLOPRAMIDE HCL 10 MG TABLET PO SCH ×3 (00:56→12:57)
[2019-07-27] MEDS ORDERED: ROPINIROLE HCL 1 MG TABLET PO ONE (01:00)
[2019-07-27] MEDS ORDERED: TIZANIDINE HCL 4 MG TABLET PO ONE (01:00)
[2019-07-27] MEDS ORDERED: METFORMIN HCL 500 MG TABLET PO ONE (01:00)
[2019-07-27] MEDS ORDERED: MYCOPHENOLATE MOFETIL 250 MG CAPSULE PO ONE (01:00)
[2019-07-27] MEDS ORDERED: GABAPENTIN 300 MG CAPSULE PO ONE (01:00)
[2019-07-27] MEDS ORDERED: SERTRALINE HCL 50 MG TABLET PO ONE (01:00)
[2019-07-27] MEDS ORDERED: GLIMEPIRIDE 4 MG TABLET PO ONE (01:00)
[2019-07-27] MEDS ORDERED: LEVOTHYROXINE SODIUM 0.1 MG TABLET PO SCH (06:00)
--- NOTE | 2019-07-27 09:58 | EKG REPORT ---
SEVERITY:- BORDERLINE ECG - SINUS TACHYCARDIA LVH BY VOLTAGE : Confirmed by: Hardeep Dunbar 27-Jul-2019 09:57:39
[2019-07-27 13:54] VITALS: BP 118/72
[2019-07-27] MEDS ORDERED: DOXEPIN HCL 25 MG CAPSULE PO SCH (22:00)
== END 2019-07-27 13:45 ==
LOC: ER 18:33
DX: R45.851 Suicidal ideations (principal)
CPT/HCPCS: 93005; 99285; 36415; 82962; 80307 ×4; 85025; 80053; 81001; 93010; A9270 ×9; J3490; J7517

== ENCOUNTER → 2020-06-10 | Outpatient (CLI) | payer MEDICARE, MEDICAID ==
--- NOTE | 2020-06-10 16:25 | RADIOLOGY REPORT (SQ) ---
EXAM DESCRIPTION: ELBOW LEFT OVER 2 VIEWS IMAGES COMPLETED DATE/TIME: 06/10/2020 2:38 pm REASON FOR STUDY: PAIN IN LEFT ELBOW I82.401 ACUTE EMBOLISM AND THOMBOS UNSP DEEP VEINS OF R LOW COMPARISON: None. NUMBER OF VIEWS: Four view. TECHNIQUE: AP, lateral, and both oblique radiographic images acquired of the left elbow. LIMITATIONS: None. FINDINGS: MINERALIZATION: Normal. BONES: No acute fracture or dislocation. No worrisome bone lesions. No significant osteophytes. JOINT: No effusions. SOFT TISSUES: No soft tissue swelling. No foreign body. OTHER: No other significant finding. IMPRESSION: NEGATIVE STUDY OF THE LEFT ELBOW. NO EXPLANATION FOR PAIN. TECHNICAL DOCUMENTATION: JOB ID: [id number] 2010 [employer]- All Rights Reserved. Reading location - IP/workstation name: [email or web address]
--- NOTE | 2020-06-10 16:56 | RADIOLOGY REPORT (SQ) ---
EXAM DESCRIPTION: ARTERIAL LOWER EXTREM BILAT IMAGES COMPLETED DATE/TIME: 06/10/2020 4:10 pm REASON FOR STUDY: RLE PAIN/TINGLING I82.401 ACUTE EMBOLISM AND THOMBOS UNSP DEEP VEINS OF R LOW COMPARISON: None. TECHNIQUE: Dynamic and static barboza scale and color images acquired of the lower extremity arteries. Additional selected spectral images recorded. LIMITATIONS: None. FINDINGS: RIGHT LEG: INFLOW ARTERIES: Normal, no obstruction evident. FEMORAL ARTERIES:Multiphasic waveforms. No velocity elevation to suggest focal stenosis. Normal color Doppler evaluation. No aneurysm. POPLITEAL ARTERY:Multiphasic waveforms. No velocity elevation to suggest focal stenosis. Normal color Doppler evaluation. No aneurysm. PATENT TIBIOPERONEAL TRUNK AND 3 VESSEL RUNOFF: Yes, normal vessels. TOE PPG: Normal waveforms in all 5 digits. LEFT LEG: INFLOW ARTERIES: Normal, no obstruction evident. FEMORAL ARTERIES:Multiphasic waveforms. No velocity elevation to suggest focal stenosis. Normal color Doppler evaluation. No aneurysm. POPLITEAL ARTERY:Multiphasic waveforms. No velocity elevation to suggest focal stenosis. Normal color Doppler evaluation. No aneurysm. PATENT TIBIOPERONEAL TRUNK AND 3 VESSEL RUNOFF: Yes, normal vessels. TOE PPG: Normal waveforms in all 5 digits. IMPRESSION: NORMAL BILATERAL LOWER EXTREMITY ARTERIAL DOPPLER. TECHNICAL DOCUMENTATION: JOB ID: [id number] 2010 [email or web address] Rights Reserved Reading location - IP/workstation name: [email or web address]
== END ==
LOC: SP 14:22
PROVIDERS: ATTEND Podiatrist Foot & Ankle Surgery
DX: I82.401 Acute embolism and thrombosis of unspecified deep veins of right lower extremity (principal); R20.2 Paresthesia of skin; M79.604 Pain in right leg
CPT/HCPCS: 93925